=== PATIENT | male | born 1960 | race Caucasian/White ===

== ENCOUNTER 2017-10-10 10:02 | Outpatient (RCR) | payer BC, SELFPAY ==
[2017-10-10 11:04] LABS: Erythrocyte Sedimentation Rate 2 mm/hr (0-20)
[2017-10-10 11:07] LABS: Absolute Lymphocyte Count 1.16 X10^3/ul (0.83-4.51); Absolute Neutrophil Count 2.9 X10^3/uL (2.0-7.7); Basophil# 0.02 X10^3/uL; Basophil% 0.4 % (0-1); Eosinophils% 2.1 % (0-5); Hematocrit 44.8 % (40-54); Hemoglobin 14.7 g/dl (13.0-16.5); Lymphocyte # 1.16 X10^3/ul (4.0); Lymphocyte % 24.2 % (19-41); Mean Corp Hgb Conc 32.8 g/gl (32-36); Mean Corpuscular Hgb 31.7 pg (27.0-32.0); Mean Corpuscular Volume 96.8 fL (80-94); Mean Platelet Vol. 9.7 fl (6.2-12.0); Monocyte# 0.61 X10^3/uL; Monocyte% 12.7 % (0-10); Neutrophil % 60.6 % (47-70); Platelet Count 225 K/mm3 (150-450); RBC Distribution Width CV 12.6 % (11.6-14.6); RBC Distribution Width SD 44.1 fl (35.1-43.9); Red Blood Count 4.63 M/mm3 (4.6-6.2); White Blood Count 4.8 K/mm3 (4.4-11.0)
[2017-10-10 11:08] LABS: POSITIVE COUNT NO; POSITIVE DIFFERENTIAL NO; POSITIVE MORPHOLOGY NO
[2017-10-10 11:43] LABS: AST(SGOT) 42 U/L (15-37); Alanine Aminotransfer ALT/SGPT 56 U/L (16-61); Albumin, Serum 3.5 g/dL (3.2-5.0); BUN 21 mg/dL (7-18); CRP < 2.90 mg/L (0.0-3.0); Cholesterol 143 mg/dL (200); Creatinine, Serum 1.11 mg/dL (0.70-1.30); EST Glomerular Filtration Rate 72 mL/min (>60); Est Glom Filt Rate - Afr Amer 87 mL/min (>60); High Density Lipoprotein 52 mg/dL; PSA,Total - Annual Screen 0.43 ng/mL (0.00-4.00); Triglycerides 88 mg/dL; Very Low Density Lipoprotein 18 mg/dL (5-40)
== END 2017-10-10 11:00 | disposition home or self-care (01) ==
LOC: LAB 10:02
PROVIDERS: Family Provider Family Medicine; PCP Family Medicine; Visit Provider Internal Medicine Rheumatology
DX: M05.79 Rheumatoid arthritis with rheumatoid factor of multiple sites without organ or systems involvement (principal); E78.2 Mixed hyperlipidemia; Z12.5 Encounter for screening for malignant neoplasm of prostate
CPT/HCPCS: 36415; 80061; 82040; 82565; 84153; 84450; 84460; 84520; 85025; 85652; 86140; G0103

== ENCOUNTER 2018-01-30 09:23 | Outpatient (RCR) | payer BC, SELFPAY ==
[2018-01-30 10:57] LABS: Cholesterol 166 mg/dL (200); High Density Lipoprotein 57 mg/dL; PSA,Total- Diagnostic 0.42 ng/mL (0.0-4.0); Triglycerides 116 mg/dL; Very Low Density Lipoprotein 23 mg/dL (5-40)
== END 2018-01-30 11:00 | disposition home or self-care (01) ==
LOC: LAB 09:23
PROVIDERS: Family Provider Family Medicine; PCP Family Medicine; Visit Provider Internal Medicine Rheumatology
DX: E78.2 Mixed hyperlipidemia (principal); Z12.5 Encounter for screening for malignant neoplasm of prostate
CPT/HCPCS: 36415; 80061; 84153

== ENCOUNTER 2018-02-01 08:56 | Outpatient (RCR) | payer BC, SELFPAY ==
[2018-02-01 09:40] LABS: Absolute Lymphocyte Count 1.15 X10^3/ul (0.83-4.51); Absolute Neutrophil Count 1.6 X10^3/uL (2.0-7.7); Basophil# 0.02 X10^3/uL; Basophil% 0.6 % (0-1); Eosinophil# 0.11 X10^3/uL; Eosinophils% 3.3 % (0-5); Hematocrit 45.7 % (40-54); Hemoglobin 15.2 g/dl (13.0-16.5); Lymphocyte # 1.15 X10^3/ul (4.0); Lymphocyte % 34.6 % (19-41); Mean Corp Hgb Conc 33.3 g/gl (32-36); Mean Corpuscular Hgb 31.5 pg (27.0-32.0); Mean Corpuscular Volume 94.8 fL (80-94); Mean Platelet Vol. 9.9 fl (6.2-12.0); Monocyte# 0.49 X10^3/uL; Monocyte% 14.8 % (0-10); Neutrophil # 1.55 X10^3/uL (2.7-7.7); Neutrophil % 46.7 % (47-70); Platelet Count 148 K/mm3 (150-450); RBC Distribution Width CV 13.3 % (11.6-14.6); RBC Distribution Width SD 46.4 fl (35.1-43.9); Red Blood Count 4.82 M/mm3 (4.6-6.2); White Blood Count 3.3 K/mm3 (4.4-11.0)
[2018-02-01 09:41] LABS: POSITIVE COUNT NO; POSITIVE DIFFERENTIAL NO; POSITIVE MORPHOLOGY NO
[2018-02-01 09:42] LABS: Erythrocyte Sedimentation Rate < 1 mm/hr (0-20)
[2018-02-01 10:12] LABS: AST(SGOT) 18 U/L (15-37); Alanine Aminotransfer ALT/SGPT 26 U/L (16-61); Albumin, Serum 3.8 g/dL (3.2-5.0); BUN 22 mg/dL (7-18); CRP < 2.90 mg/L (0.0-3.0); Creatinine, Serum 1.27 mg/dL (0.70-1.30); EST Glomerular Filtration Rate 62 mL/min (>60); Est Glom Filt Rate - Afr Amer 75 mL/min (>60)
== END 2018-02-01 10:00 | disposition home or self-care (01) ==
LOC: LAB 08:56
PROVIDERS: Family Provider Family Medicine; PCP Family Medicine; Visit Provider Internal Medicine Rheumatology
DX: M05.79 Rheumatoid arthritis with rheumatoid factor of multiple sites without organ or systems involvement (principal)
CPT/HCPCS: 36415; 82040; 82565; 84450; 84460; 84520; 85025; 85652; 86140

== ENCOUNTER → 2018-03-02 08:41 | Outpatient (CLI) | payer BC, SELFPAY | PROVIDERS: Family Provider Family Medicine; PCP Family Medicine; Visit Provider Internal Medicine Rheumatology | DX: M06.079 Rheumatoid arthritis without rheumatoid factor, unspecified ankle and foot (principal); M25.572 Pain in left ankle and joints of left foot | CPT/HCPCS: 73721 ==

== ENCOUNTER 2018-05-14 08:35 | Outpatient (RCR) | payer BC, SELFPAY ==
[2018-05-14 10:38] LABS: Absolute Lymphocyte Count 1.21 X10^3/ul (0.83-4.51); Absolute Neutrophil Count 1.6 X10^3/uL (2.0-7.7); Basophil# 0.02 X10^3/uL; Basophil% 0.6 % (0-1); Eosinophil# 0.14 X10^3/uL; Eosinophils% 4.1 % (0-5); Hematocrit 47.5 % (40-54); Hemoglobin 16.1 g/dl (13.0-16.5); Lymphocyte # 1.21 X10^3/ul (4.0); Lymphocyte % 35.1 % (19-41); Mean Corp Hgb Conc 33.9 g/gl (32-36); Mean Corpuscular Hgb 32.7 pg (27.0-32.0); Mean Corpuscular Volume 96.3 fL (80-94); Mean Platelet Vol. 10.6 fl (6.2-12.0); Monocyte# 0.53 X10^3/uL; Monocyte% 15.4 % (0-10); Neutrophil # 1.55 X10^3/uL (2.7-7.7); Neutrophil % 44.8 % (47-70); Platelet Count 154 K/mm3 (150-450); RBC Distribution Width CV 12.5 % (11.6-14.6); RBC Distribution Width SD 42.9 fl (35.1-43.9); Red Blood Count 4.93 M/mm3 (4.6-6.2); White Blood Count 3.5 K/mm3 (4.4-11.0)
[2018-05-14 10:50] LABS: AST(SGOT) 23 U/L (15-37); Alanine Aminotransfer ALT/SGPT 37 U/L (16-61); Albumin, Serum 3.8 g/dL (3.2-5.0); BUN 20 mg/dL (7-18); CRP < 2.90 mg/L (0.0-3.0); Creatinine, Serum 1.14 mg/dL (0.70-1.30); EST Glomerular Filtration Rate 70 mL/min (>60); Est Glom Filt Rate - Afr Amer 85 mL/min (>60)
[2018-05-14 10:53] LABS: POSITIVE COUNT NO; POSITIVE DIFFERENTIAL NO; POSITIVE MORPHOLOGY NO
[2018-05-14 10:54] LABS: Cholesterol 159 mg/dL (200); High Density Lipoprotein 51 mg/dL; T4 Free Direct 0.77 ng/dL (0.76-1.46); Thyroid Stim Hormone (TSH) 2.02 uIU/mL (0.358-3.74); Triglycerides 66 mg/dL; Very Low Density Lipoprotein 13 mg/dL (5-40)
[2018-05-14 11:22] LABS: Erythrocyte Sedimentation Rate 1 mm/hr (0-20)
== END 2018-05-14 10:00 | disposition home or self-care (01) ==
LOC: LAB 08:35
PROVIDERS: Family Provider Family Medicine; PCP Family Medicine; Referring Provider Internal Medicine Rheumatology; Visit Provider Internal Medicine Rheumatology
DX: E78.5 Hyperlipidemia, unspecified (principal); M05.79 Rheumatoid arthritis with rheumatoid factor of multiple sites without organ or systems involvement
CPT/HCPCS: 36415; 80061; 82040; 82565; 84439; 84443; 84450; 84460; 84520; 85025; 85652; 86140

== ENCOUNTER 2018-09-05 11:07 | Outpatient (RCR) | payer BC, SELFPAY ==
[2018-09-05 11:39] LABS: Absolute Neutrophil Count 1.9 X10^3/uL (2.0-7.7); Basophil# 0.02 X10^3/uL; Basophil% 0.5 % (0-1); Eosinophil# 0.13 X10^3/uL; Eosinophils% 3.3 % (0-5); Hematocrit 45.7 % (40-54); Hemoglobin 15.9 g/dl (13.0-16.5); Lymphocyte % 30.8 % (19-41); Mean Corp Hgb Conc 34.8 g/gl (32-36); Mean Corpuscular Hgb 33.7 pg (27.0-32.0); Mean Corpuscular Volume 96.8 fL (80-94); Mean Platelet Vol. 10.1 fl (6.2-12.0); Monocyte# 0.62 X10^3/uL; Monocyte% 15.9 % (0-10); Neutrophil # 1.92 X10^3/uL (2.7-7.7); Neutrophil % 49.5 % (47-70); Platelet Count 144 K/mm3 (150-450); RBC Distribution Width SD 46.1 fl (35.1-43.9); Red Blood Count 4.72 M/mm3 (4.6-6.2); White Blood Count 3.9 K/mm3 (4.4-11.0)
[2018-09-05 11:49] LABS: Erythrocyte Sedimentation Rate 1 mm/hr (0-20)
[2018-09-05 11:50] LABS: POSITIVE COUNT NO; POSITIVE DIFFERENTIAL NO; POSITIVE MORPHOLOGY NO
[2018-09-05 12:18] LABS: AST(SGOT) 22 U/L (15-37); Alanine Aminotransfer ALT/SGPT 39 U/L (16-61); Albumin, Serum 3.8 g/dL (3.2-5.0); BUN 18 mg/dL (7-18); CRP < 2.90 mg/L (0.0-3.0); Creatinine, Serum 1.19 mg/dL (0.70-1.30); EST Glomerular Filtration Rate 66 mL/min (>60); Est Glom Filt Rate - Afr Amer 80 mL/min (>60)
== END 2018-09-20 14:31 | disposition home or self-care (01) ==
LOC: LAB 11:07
PROVIDERS: Family Provider Family Medicine; PCP Family Medicine; Referring Provider Internal Medicine Rheumatology; Visit Provider Internal Medicine Rheumatology
DX: M05.79 Rheumatoid arthritis with rheumatoid factor of multiple sites without organ or systems involvement (principal); Z79.899 Other long term (current) drug therapy
CPT/HCPCS: 36415; 82040; 82565; 84450; 84460; 84520; 85025; 85652; 86140

== ENCOUNTER 2018-12-10 15:37 | Outpatient (RCR) | payer BC, SELFPAY ==
[2018-12-10 17:32] LABS: Absolute Lymphocyte Count 1.24 X10^3/ul (0.83-4.51); Basophil# 0.01 X10^3/uL; Basophil% 0.3 % (0-1); Eosinophil# 0.06 X10^3/uL; Eosinophils% 1.6 % (0-5); Hematocrit 42.9 % (40-54); Hemoglobin 14.7 g/dl (13.0-16.5); Lymphocyte # 1.24 X10^3/ul (4.0); Lymphocyte % 32.2 % (19-41); Mean Corp Hgb Conc 34.3 g/gl (32-36); Mean Corpuscular Hgb 32.5 pg (27.0-32.0); Mean Corpuscular Volume 94.9 fL (80-94); Mean Platelet Vol. 11.2 fl (6.2-12.0); Neutrophil # 2.04 X10^3/uL (2.7-7.7); Neutrophil % 52.9 % (47-70); Platelet Count 169 K/mm3 (150-450); RBC Distribution Width CV 12.4 % (11.6-14.6); RBC Distribution Width SD 41.9 fl (35.1-43.9); Red Blood Count 4.52 M/mm3 (4.6-6.2); White Blood Count 3.9 K/mm3 (4.4-11.0)
[2018-12-10 17:33] LABS: POSITIVE COUNT NO; POSITIVE DIFFERENTIAL NO; POSITIVE MORPHOLOGY NO
[2018-12-10 18:01] LABS: AST(SGOT) 21 U/L (15-37); Alanine Aminotransfer ALT/SGPT 32 U/L (16-61); Albumin, Serum 3.8 g/dL (3.2-5.0); BUN 21 mg/dL (7-18); CRP < 2.90 mg/L (0.0-3.0); EST Glomerular Filtration Rate 73 mL/min (>60); Est Glom Filt Rate - Afr Amer 88 mL/min (>60)
[2018-12-10 18:09] LABS: Erythrocyte Sedimentation Rate < 1 mm/hr (0-20)
== END 2018-12-10 16:37 | disposition home or self-care (01) ==
LOC: LAB 15:37
PROVIDERS: Family Provider Family Medicine; PCP Family Medicine; Referring Provider Internal Medicine Rheumatology; Visit Provider Internal Medicine Rheumatology
DX: M06.079 Rheumatoid arthritis without rheumatoid factor, unspecified ankle and foot (principal); Z79.899 Other long term (current) drug therapy
CPT/HCPCS: 36415; 82040; 82565; 84450; 84460; 84520; 85025; 85652; 86140

== ENCOUNTER 2019-03-12 09:54 | Outpatient (RCR) | payer BC, SELFPAY ==
[2019-03-12 10:28] LABS: Erythrocyte Sedimentation Rate < 1 mm/hr (0-20)
[2019-03-12 10:29] LABS: Absolute Lymphocyte Count 0.97 X10^3/uL (0.83-4.51); Absolute Neutrophil Count 1.6 X10^3/uL (2.0-7.7); Basophil# 0.03 X10^3/uL; Basophil% 0.9 % (0-1); Eosinophil# 0.13 X10^3/uL; Hemoglobin 15.6 g/dL (13.0-16.5); Lymphocyte # 0.97 X10^3/ul (4.0); Lymphocyte % 29.8 % (19-41); Mean Corp Hgb Conc 34.7 g/dL (32-36); Mean Corpuscular Hgb 33.5 pg (27.0-32.0); Mean Corpuscular Volume 96.6 fL (80-94); Mean Platelet Vol. 10.2 fl (6.2-12.0); Monocyte% 15.4 % (0-10); NRBC Flagged by Analyzer 0 % (0-5); Neutrophil # 1.61 X10^3/uL (2.7-7.7); Neutrophil % 49.6 % (47-70); Platelet Count 159 K/mm3 (150-450); RBC Distribution Width CV 12.2 % (11.6-14.6); RBC Distribution Width SD 43.7 fl (35.1-43.9); Red Blood Count 4.66 M/mm3 (4.6-6.2); White Blood Count 3.3 K/mm3 (4.4-11.0)
[2019-03-12 11:04] LABS: AST(SGOT) 22 U/L (15-37); Alanine Aminotransfer ALT/SGPT 32 U/L (16-61); Albumin, Serum 3.6 g/dL (3.2-5.0); BUN 17 mg/dL (7-18); CRP < 2.90 mg/L (0.0-3.0); Creatinine, Serum 1.13 mg/dL (0.70-1.30); EST Glomerular Filtration Rate 70 mL/min (>60); Est Glom Filt Rate - Afr Amer 85 mL/min (>60)
== END 2019-03-12 11:00 | disposition home or self-care (01) ==
LOC: LAB 09:54
PROVIDERS: Family Provider Family Medicine; PCP Family Medicine; Referring Provider Internal Medicine Rheumatology; Visit Provider Internal Medicine Rheumatology
DX: M06.079 Rheumatoid arthritis without rheumatoid factor, unspecified ankle and foot (principal); Z79.899 Other long term (current) drug therapy
CPT/HCPCS: 36415; 82040; 82565; 84450; 84460; 84520; 85025; 85652; 86140

== ENCOUNTER 2019-06-17 09:19 | Outpatient (RCR) | payer BC, SELFPAY ==
[2019-06-17 10:35] LABS: Absolute Lymphocyte Count 0.91 X10^3/uL (0.83-4.51); Absolute Neutrophil Count 1.8 X10^3/uL (2.0-7.7); Basophil# 0.03 X10^3/uL; Basophil% 0.9 % (0-1); Eosinophil# 0.09 X10^3/uL; Eosinophils% 2.7 % (0-5); Hematocrit 46.7 % (40-54); Hemoglobin 15.9 g/dL (13.0-16.5); Lymphocyte # 0.91 X10^3/ul (4.0); Lymphocyte % 27.2 % (19-41); Mean Corpuscular Volume 96.9 fL (80-94); Mean Platelet Vol. 10.4 fl (6.2-12.0); Monocyte# 0.49 X10^3/uL; Monocyte% 14.7 % (0-10); NRBC Flagged by Analyzer 0 % (0-5); Neutrophil # 1.82 X10^3/uL (2.7-7.7); Neutrophil % 54.5 % (47-70); Platelet Count 172 K/mm3 (150-450); RBC Distribution Width CV 12.5 % (11.6-14.6); RBC Distribution Width SD 44.4 fl (35.1-43.9); Red Blood Count 4.82 M/mm3 (4.6-6.2); White Blood Count 3.3 K/mm3 (4.4-11.0)
[2019-06-17 10:38] LABS: Erythrocyte Sedimentation Rate 2 mm/hr (0-20)
[2019-06-17 11:22] LABS: AST(SGOT) 20 U/L (15-37); Alanine Aminotransfer ALT/SGPT 36 U/L (16-61); Albumin, Serum 3.8 g/dL (3.2-5.0); BUN 20 mg/dL (7-18); CRP < 2.90 mg/L (0.0-3.0); Creatinine, Serum 1.19 mg/dL (0.70-1.30); EST Glomerular Filtration Rate 66 mL/min (>60); Est Glom Filt Rate - Afr Amer 80 mL/min (>60)
== END 2019-06-17 18:00 | disposition home or self-care (01) ==
LOC: LAB 09:19
PROVIDERS: Family Provider Family Medicine; PCP Family Medicine; Referring Provider Internal Medicine Rheumatology; Visit Provider Internal Medicine Rheumatology
DX: M06.079 Rheumatoid arthritis without rheumatoid factor, unspecified ankle and foot (principal); Z79.899 Other long term (current) drug therapy
CPT/HCPCS: 36415; 82040; 82565; 84450; 84460; 84520; 85025; 85652; 86140

== ENCOUNTER 2019-09-16 15:45 | Outpatient (RCR) | payer BC, SELFPAY ==
[2019-09-16 16:39] LABS: Absolute Lymphocyte Count 1.19 X10^3/uL (0.83-4.51); Basophil# 0.04 X10^3/uL; Basophil% 0.8 % (0-1); Hematocrit 47.4 % (40-54); Hemoglobin 15.8 g/dL (13.0-16.5); Lymphocyte # 1.19 X10^3/ul (4.0); Lymphocyte % 23.7 % (19-41); Mean Corp Hgb Conc 33.3 g/dL (32-36); Mean Corpuscular Hgb 32.8 pg (27.0-32.0); Mean Corpuscular Volume 98.3 fL (80-94); Mean Platelet Vol. 10.2 fl (6.2-12.0); Monocyte# 0.65 X10^3/uL; Monocyte% 12.9 % (0-10); NRBC Flagged by Analyzer 0 % (0-5); Neutrophil # 3.01 X10^3/uL (2.7-7.7); Platelet Count 174 K/mm3 (150-450); RBC Distribution Width CV 12.7 % (11.6-14.6); RBC Distribution Width SD 45.6 fl (35.1-43.9); Red Blood Count 4.82 M/mm3 (4.6-6.2)
[2019-09-16 16:49] LABS: Erythrocyte Sedimentation Rate 1 mm/hr (0-20)
[2019-09-16 17:14] LABS: AST(SGOT) 20 U/L (15-37); Alanine Aminotransfer ALT/SGPT 35 U/L (16-61); Albumin, Serum 3.9 g/dL (3.2-5.0); BUN 19 mg/dL (7-18); CRP < 2.90 mg/L (0.0-3.0); Creatinine, Serum 1.18 mg/dL (0.70-1.30); EST Glomerular Filtration Rate 67 mL/min (>60); Est Glom Filt Rate - Afr Amer 81 mL/min (>60)
== END 2019-09-16 18:00 | disposition home or self-care (01) ==
LOC: LAB 15:45
PROVIDERS: Family Provider Family Medicine; PCP Family Medicine; Referring Provider Internal Medicine Rheumatology; Visit Provider Internal Medicine Rheumatology
DX: M06.079 Rheumatoid arthritis without rheumatoid factor, unspecified ankle and foot (principal); Z79.899 Other long term (current) drug therapy
CPT/HCPCS: 36415; 82040; 82565; 84450; 84460; 84520; 85025; 85652; 86140

== ENCOUNTER → 2019-11-26 16:13 | Outpatient (CLI) | payer BC, SELFPAY ==
[2019-11-26 16:53] LABS: Absolute Lymphocyte Count 0.99 X10^3/uL (0.83-4.51); Absolute Neutrophil Count 2.4 X10^3/uL (2.0-7.7); Basophil# 0.02 X10^3/uL; Basophil% 0.5 % (0-1); Eosinophil# 0.17 X10^3/uL; Eosinophils% 4.1 % (0-5); Hematocrit 45.7 % (40-54); Hemoglobin 15.3 g/dL (13.0-16.5); Lymphocyte # 0.99 X10^3/ul (4.0); Lymphocyte % 23.7 % (19-41); Mean Corp Hgb Conc 33.5 g/dL (32-36); Mean Corpuscular Hgb 32.1 pg (27.0-32.0); Mean Corpuscular Volume 95.8 fL (80-94); Mean Platelet Vol. 9.5 fl (6.2-12.0); Monocyte# 0.55 X10^3/uL; Monocyte% 13.2 % (0-10); NRBC Flagged by Analyzer 0 % (0-5); Neutrophil # 2.43 X10^3/uL (2.7-7.7); Neutrophil % 58.3 % (47-70); Platelet Count 157 K/mm3 (150-450); RBC Distribution Width CV 12.5 % (11.6-14.6); RBC Distribution Width SD 44.3 fl (35.1-43.9); Red Blood Count 4.77 M/mm3 (4.6-6.2); White Blood Count 4.2 K/mm3 (4.4-11.0)
[2019-11-26 17:26] LABS: AST(SGOT) 26 U/L (15-37); Alanine Aminotransfer ALT/SGPT 36 U/L (16-61); Albumin, Serum 3.7 g/dL (3.2-5.0); BUN 24 mg/dL (7-18); CRP < 2.90 mg/L (0.0-3.0); Creatinine, Serum 1.43 mg/dL (0.70-1.30); EST Glomerular Filtration Rate 54 mL/min (>60); Est Glom Filt Rate - Afr Amer 65 mL/min (>60); Uric Acid 7.3 mg/dL (3.5-7.2)
[2019-11-26 18:07] LABS: Erythrocyte Sedimentation Rate < 1 mm/hr (0-20)
[2019-11-27 08:28] LABS: Hepatitis B Surface Antibody Non-Reactive; Hepatitis B Surface Antigen Non-Reactive (Nonreactive); Hepatitis C Antibody Non-Reactive (Nonreactive)
[2019-11-30 03:06] LABS: QNTFERON TB Mitogen Value > 10.00 IU/mL (.); QNTFERON TB Nil Value 0.01 IU/mL (.); QNTFERON TB1+ Ag Value 0.03 IU/mL (.); QNTFERON TB2+ Ag Value 0.01 IU/mL (.)
[2019-11-30 03:22] LABS: CCP IgG Antibodies 90 units (0-19); Hepatitis B Core Ab Total Negative (Negative); QNTIFERON TB Positive Criteria Negative (Negative)
== END ==
PROVIDERS: PCP Family Medicine; Visit Provider Internal Medicine Rheumatology
DX: M06.079 Rheumatoid arthritis without rheumatoid factor, unspecified ankle and foot (principal); Z79.899 Other long term (current) drug therapy
CPT/HCPCS: 36415; 82040; 82565; 84450; 84460; 84520; 84550; 85025; 85652; 86038; 86140; 86200; 86431; 86480; 86704; 86706; 86803; 87340

== ENCOUNTER 2020-02-27 08:24 | Outpatient (RCR) | payer BC, SELFPAY ==
[2020-02-27 09:29] LABS: Erythrocyte Sedimentation Rate 4 mm/hr (0-20)
[2020-02-27 09:31] LABS: Absolute Lymphocyte Count 0.86 X10^3/uL (0.83-4.51); Absolute Neutrophil Count 1.8 X10^3/uL (2.0-7.7); Basophil# 0.04 X10^3/uL; Basophil% 1.1 % (0-1); Eosinophil# 0.17 X10^3/uL; Eosinophils% 4.6 % (0-5); Hematocrit 44.6 % (40-54); Hemoglobin 15.1 g/dL (13.0-16.5); Lymphocyte # 0.86 X10^3/ul (4.0); Lymphocyte % 23.5 % (19-41); Mean Corp Hgb Conc 33.9 g/dL (32-36); Mean Corpuscular Hgb 33.3 pg (27.0-32.0); Mean Corpuscular Volume 98.2 fL (80-94); Mean Platelet Vol. 10.3 fl (6.2-12.0); Monocyte# 0.74 X10^3/uL; Monocyte% 20.2 % (0-10); NRBC Flagged by Analyzer 0 % (0-5); Neutrophil # 1.84 X10^3/uL (2.7-7.7); Neutrophil % 50.3 % (47-70); Platelet Count 189 K/mm3 (150-450); RBC Distribution Width CV 12.1 % (11.6-14.6); Red Blood Count 4.54 M/mm3 (4.6-6.2); White Blood Count 3.7 K/mm3 (4.4-11.0)
[2020-02-27 09:51] LABS: AST(SGOT) 26 U/L (15-37); Alanine Aminotransfer ALT/SGPT 37 U/L (16-61); Albumin, Serum 3.6 g/dL (3.2-5.0); BUN 28 mg/dL (7-18); CRP < 2.90 mg/L (0.0-3.0); EST Glomerular Filtration Rate 71 mL/min (>60)
== END 2020-02-27 18:00 | disposition home or self-care (01) ==
LOC: LAB 08:24
PROVIDERS: Family Provider Family Medicine; PCP Family Medicine; Referring Provider Internal Medicine Rheumatology; Visit Provider Internal Medicine Rheumatology
DX: M06.079 Rheumatoid arthritis without rheumatoid factor, unspecified ankle and foot (principal); Z79.899 Other long term (current) drug therapy
CPT/HCPCS: 36415; 82040; 84450; 84460; 84520; 85025; 85652; 86140

== ENCOUNTER 2020-06-01 14:52 | Outpatient (RCR) | payer BC, SELFPAY ==
[2020-06-01 15:36] LABS: Absolute Lymphocyte Count 0.98 X10^3/uL (0.83-4.51); Absolute Neutrophil Count 2.9 X10^3/uL (2.0-7.7); Basophil# 0.03 X10^3/uL; Basophil% 0.7 % (0-1); Eosinophil# 0.02 X10^3/uL; Eosinophils% 0.4 % (0-5); Hematocrit 44.5 % (40-54); Hemoglobin 14.8 g/dL (13.0-16.5); Lymphocyte # 0.98 X10^3/ul (4.0); Lymphocyte % 21.9 % (19-41); Mean Corp Hgb Conc 33.3 g/dL (32-36); Mean Corpuscular Hgb 32.7 pg (27.0-32.0); Mean Corpuscular Volume 98.5 fL (80-94); Mean Platelet Vol. 10.2 fl (6.2-12.0); Monocyte# 0.55 X10^3/uL; Monocyte% 12.3 % (0-10); NRBC Flagged by Analyzer 0 % (0-5); Neutrophil # 2.88 X10^3/uL (2.7-7.7); Neutrophil % 64.5 % (47-70); Platelet Count 170 K/mm3 (150-450); RBC Distribution Width CV 12.9 % (11.6-14.6); RBC Distribution Width SD 45.8 fl (35.1-43.9); Red Blood Count 4.52 M/mm3 (4.6-6.2); White Blood Count 4.5 K/mm3 (4.4-11.0)
[2020-06-01 15:59] LABS: Erythrocyte Sedimentation Rate 2 mm/hr (0-20)
[2020-06-01 16:07] LABS: AST(SGOT) 21 U/L (15-37); Alanine Aminotransfer ALT/SGPT 34 U/L (16-61); Albumin, Serum 3.8 g/dL (3.2-5.0); BUN 15 mg/dL (7-18); CRP < 2.90 mg/L (0.0-3.0); Creatinine, Serum 1.16 mg/dL (0.70-1.30); EST Glomerular Filtration Rate 68 mL/min (>60); Est Glom Filt Rate - Afr Amer 82 mL/min (>60)
== END 2020-06-01 18:00 | disposition home or self-care (01) ==
LOC: LAB 14:52
PROVIDERS: Family Provider Family Medicine; PCP Family Medicine; Referring Provider Internal Medicine Rheumatology; Visit Provider Internal Medicine Rheumatology
DX: M06.079 Rheumatoid arthritis without rheumatoid factor, unspecified ankle and foot (principal); Z79.899 Other long term (current) drug therapy
CPT/HCPCS: 36415; 82040; 82565; 84450; 84460; 84520; 85025; 85652; 86140

== ENCOUNTER → 2020-07-08 15:48 | Outpatient (CLI) | payer BC, SELFPAY ==
[2020-07-08 18:01] LABS: ALB/GLOB Ratio 1.3 RATIO (0.9-2.4); AST(SGOT) 18 U/L (15-37); Alanine Aminotransfer ALT/SGPT 42 U/L (16-61); Albumin, Serum 4.1 g/dL (3.2-5.0); Alkaline Phosphatase 64 U/L (45-117); Anion Gap 5 (5-15); BUN 19 mg/dL (7-18); BUN/Creat Ratio 15.7 RATIO (10-20); Calcium,Total 9.1 mg/dL (8.5-10.1); Chloride 103 mmol/L (98-107); Cholesterol 192 mg/dL (200); Creatinine, Serum 1.21 mg/dL (0.70-1.30); EST Glomerular Filtration Rate 65 mL/min (>60); Est Glom Filt Rate - Afr Amer 78 mL/min (>60); Globulin 3.1 g/dL (2.2-4.2); Glucose 103 mg/dL (74-106); High Density Lipoprotein 68 mg/dL; Potassium 4.3 mmol/L (3.5-5.1); Protein, Total 7.2 g/dL (6.4-8.2); Sodium Level 139 mmol/L (136-145); Thyroid Stim Hormone (TSH) 1.59 uIU/mL (0.358-3.74); Triglycerides 117 mg/dL; Very Low Density Lipoprotein 23 mg/dL (5-40)
== END ==
PROVIDERS: PCP Family Medicine; Visit Provider Family Medicine
DX: E78.5 Hyperlipidemia, unspecified (principal); M06.9 Rheumatoid arthritis, unspecified; Z12.5 Encounter for screening for malignant neoplasm of prostate
CPT/HCPCS: 36415; 80053; 80061; 84153; 84443; G0103

== ENCOUNTER 2020-09-29 08:32 | Outpatient (RCR) | payer BC, SELFPAY ==
[2020-09-29 09:41] LABS: Absolute Neutrophil Count 1.6 X10^3/uL (2.0-7.7); Basophil# 0.03 X10^3/uL; Eosinophils% 3.2 % (0-5); Hematocrit 47.8 % (40-54); Hemoglobin 16.3 g/dL (13.0-16.5); Lymphocyte % 32.5 % (19-41); Mean Corp Hgb Conc 34.1 g/dL (32-36); Mean Corpuscular Hgb 34.4 pg (27.0-32.0); Mean Corpuscular Volume 100.8 fL (80-94); NRBC Flagged by Analyzer 0 % (0-5); Neutrophil # 1.55 X10^3/uL (2.7-7.7); Neutrophil % 50.3 % (47-70); Platelet Count 154 K/mm3 (150-450); RBC Distribution Width CV 12.5 % (11.6-14.6); RBC Distribution Width SD 47.7 fl (35.1-43.9); Red Blood Count 4.74 M/mm3 (4.6-6.2); White Blood Count 3.1 K/mm3 (4.4-11.0)
[2020-09-29 09:59] LABS: Erythrocyte Sedimentation Rate 1 mm/hr (0-20)
[2020-09-29 10:00] LABS: AST(SGOT) 21 U/L (15-37); Alanine Aminotransfer ALT/SGPT 37 U/L (16-61); Albumin, Serum 3.7 g/dL (3.2-5.0); BUN 22 mg/dL (7-18); CRP < 2.90 mg/L (0.0-3.0); Creatinine, Serum 1.26 mg/dL (0.70-1.30); EST Glomerular Filtration Rate 62 mL/min (>60); Est Glom Filt Rate - Afr Amer 75 mL/min (>60)
== END 2020-09-29 18:00 | disposition home or self-care (01) ==
LOC: LAB 08:32
PROVIDERS: Family Provider Family Medicine; PCP Family Medicine; Referring Provider Internal Medicine Rheumatology; Visit Provider Internal Medicine Rheumatology
DX: M06.079 Rheumatoid arthritis without rheumatoid factor, unspecified ankle and foot (principal); Z79.899 Other long term (current) drug therapy
CPT/HCPCS: 36415; 82040; 82565; 84450; 84460; 84520; 85025; 85652; 86140

== ENCOUNTER 2021-02-01 13:30 | Outpatient (RCR) | payer BC, SELFPAY ==
[2021-02-01 14:05] LABS: Absolute Neutrophil Count 4.7 X10^3/uL (2.0-7.7); Basophil# 0.04 X10^3/uL; Basophil% 0.7 % (0-1); Eosinophil# 0.04 X10^3/uL; Eosinophils% 0.7 % (0-5); Hematocrit 47.2 % (40-54); Hemoglobin 15.7 g/dL (13.0-16.5); Lymphocyte % 8.2 % (19-41); Mean Corp Hgb Conc 33.3 g/dL (32-36); Mean Corpuscular Hgb 32.8 pg (27.0-32.0); Mean Corpuscular Volume 98.5 fL (80-94); Mean Platelet Vol. 9.9 fl (6.2-12.0); Monocyte# 0.82 X10^3/uL; Monocyte% 13.5 % (0-10); NRBC Flagged by Analyzer 0 % (0-5); Neutrophil # 4.66 X10^3/uL (2.7-7.7); Neutrophil % 76.6 % (47-70); POSITIVE DIFFERENTIAL YES; Platelet Count 156 K/mm3 (150-450); RBC Distribution Width CV 12.5 % (11.6-14.6); RBC Distribution Width SD 45.7 fl (35.1-43.9); Red Blood Count 4.79 M/mm3 (4.6-6.2); White Blood Count 6.1 K/mm3 (4.4-11.0)
[2021-02-01 14:09] LABS: Differential Indicated SCAN CRITERIA MET
[2021-02-01 14:19] LABS: Erythrocyte Sedimentation Rate 3 mm/hr (0-20)
[2021-02-01 14:37] LABS: Platelet Estimate ADEQUATE (ADEQ); Red Cell Morphology NORM C+C NORMAL (NORM C&C)
[2021-02-01 14:43] LABS: AST(SGOT) 24 U/L (15-37); Alanine Aminotransfer ALT/SGPT 33 U/L (16-61); BUN 17 mg/dL (7-18); CRP < 2.90 mg/L (0.0-3.0); Creatinine, Serum 1.77 mg/dL (0.70-1.30); EST Glomerular Filtration Rate 42 mL/min (>60); Est Glom Filt Rate - Afr Amer 50 mL/min (>60)
== END 2021-02-01 18:00 | disposition home or self-care (01) ==
LOC: LAB 13:30
PROVIDERS: Family Provider Family Medicine; PCP Family Medicine; Referring Provider Internal Medicine Rheumatology; Visit Provider Internal Medicine Rheumatology
DX: M06.079 Rheumatoid arthritis without rheumatoid factor, unspecified ankle and foot (principal); Z79.899 Other long term (current) drug therapy
CPT/HCPCS: 36415; 82040; 82565; 84450; 84460; 84520; 85025; 85652; 86140

== ENCOUNTER → 2021-04-17 07:55 | Outpatient (CLI) | payer BC, SELFPAY ==
[2021-04-17 08:53] LABS: Absolute Lymphocyte Count 0.89 X10^3/uL (0.83-4.51); Absolute Neutrophil Count 1.7 X10^3/uL (2.0-7.7); Basophil# 0.04 X10^3/uL; Basophil% 1.2 % (0-1); Hematocrit 46.2 % (40-54); Hemoglobin 15.5 g/dL (13.0-16.5); Lymphocyte # 0.89 X10^3/ul (0.83-4.51); Lymphocyte % 27.1 % (19-41); Mean Corp Hgb Conc 33.5 g/dL (32-36); Mean Corpuscular Hgb 33.3 pg (27.0-32.0); Mean Corpuscular Volume 99.1 fL (80-94); Monocyte% 18.2 % (0-10); NRBC Flagged by Analyzer 0 % (0-5); Neutrophil # 1.65 X10^3/uL (2.7-7.7); Neutrophil % 50.2 % (47-70); Platelet Count 174 K/mm3 (150-450); RBC Distribution Width CV 12.9 % (11.6-14.6); RBC Distribution Width SD 46.9 fl (35.1-43.9); Red Blood Count 4.66 M/mm3 (4.6-6.2)
[2021-04-17 08:55] LABS: Erythrocyte Sedimentation Rate < 1 mm/hr (0-20); White Blood Count 3.3 K/mm3 (4.4-11.0)
[2021-04-17 09:21] LABS: AST(SGOT) 23 U/L (15-37); Alanine Aminotransfer ALT/SGPT 36 U/L (16-61); Albumin, Serum 3.6 g/dL (3.2-5.0); BUN 20 mg/dL (7-18); CRP < 2.90 mg/L (0.0-3.0); Creatinine, Serum 1.06 mg/dL (0.70-1.30); EST Glomerular Filtration Rate 75 mL/min (>60); Est Glom Filt Rate - Afr Amer 91 mL/min (>60)
[2021-04-18 10:33] LABS: Hepatitis B Core Ab Total Negative (Negative)
== END ==
PROVIDERS: PCP Family Medicine; Referring Provider Internal Medicine Rheumatology; Visit Provider Internal Medicine Rheumatology
DX: Z79.899 Other long term (current) drug therapy (principal)
CPT/HCPCS: 36415; 82040; 82565; 84450; 84460; 84520; 85025; 85652; 86140; 86704

== ENCOUNTER 2021-07-09 10:03 | Outpatient (RCR) | payer BC, SELFPAY ==
[2021-07-09 10:30] LABS: Erythrocyte Sedimentation Rate < 1 mm/hr (0-20)
[2021-07-09 10:31] LABS: Absolute Lymphocyte Count 0.97 X10^3/uL (0.83-4.51); Absolute Neutrophil Count 1.9 X10^3/uL (2.0-7.7); Basophil# 0.03 X10^3/uL; Basophil% 0.8 % (0-1); Eosinophils% 2.7 % (0-5); Hematocrit 46.2 % (40-54); Hemoglobin 15.4 g/dL (13.0-16.5); Lymphocyte # 0.97 X10^3/ul (0.83-4.51); Lymphocyte % 26.2 % (19-41); Mean Corp Hgb Conc 33.3 g/dL (32-36); Mean Corpuscular Hgb 33.1 pg (27.0-32.0); Mean Corpuscular Volume 99.4 fL (80-94); Mean Platelet Vol. 9.4 fl (6.2-12.0); Monocyte# 0.73 X10^3/uL; Monocyte% 19.7 % (0-10); NRBC Flagged by Analyzer 0 % (0-5); Neutrophil # 1.86 X10^3/uL (2.7-7.7); Neutrophil % 50.3 % (47-70); Platelet Count 165 K/mm3 (150-450); RBC Distribution Width CV 12.7 % (11.6-14.6); RBC Distribution Width SD 46.5 fl (35.1-43.9); Red Blood Count 4.65 M/mm3 (4.6-6.2); White Blood Count 3.7 K/mm3 (4.4-11.0)
[2021-07-09 10:59] LABS: AST(SGOT) 21 U/L (15-37); Alanine Aminotransfer ALT/SGPT 41 U/L (16-61); Albumin, Serum 3.6 g/dL (3.2-5.0); BUN 20 mg/dL (7-18); CRP < 2.90 mg/L (0.0-3.0); Cholesterol 167 mg/dL (200); Creatinine, Serum 1.12 mg/dL (0.70-1.30); EST Glomerular Filtration Rate 71 mL/min (>60); Est Glom Filt Rate - Afr Amer 85 mL/min (>60); High Density Lipoprotein 71 mg/dL; PSA,Total - Annual Screen 0.37 ng/mL (0.00-4.00); Triglycerides 68 mg/dL; Very Low Density Lipoprotein 14 mg/dL (5-40)
== END 2021-07-24 18:00 | disposition home or self-care (01) ==
LOC: LAB 10:03
PROVIDERS: Family Provider Family Medicine; PCP Family Medicine; Referring Provider Family Medicine; Visit Provider Internal Medicine Rheumatology
DX: M06.079 Rheumatoid arthritis without rheumatoid factor, unspecified ankle and foot (principal); E78.5 Hyperlipidemia, unspecified; Z12.5 Encounter for screening for malignant neoplasm of prostate
CPT/HCPCS: 36415; 80061; 82040; 82565; 84153; 84450; 84460; 84520; 85025; 85652; 86140; G0103

== ENCOUNTER 2021-10-08 09:33 | Outpatient (RCR) | payer BC, SELFPAY ==
[2021-10-08 10:49] LABS: Absolute Lymphocyte Count 0.88 X10^3/uL (0.83-4.51); Absolute Neutrophil Count 1.7 X10^3/uL (2.0-7.7); Basophil# 0.03 X10^3/uL; Basophil% 0.9 % (0-1); Eosinophil# 0.07 X10^3/uL; Eosinophils% 2.1 % (0-5); Erythrocyte Sedimentation Rate 1 mm/hr (0-20); Hematocrit 46.3 % (40-54); Hemoglobin 16.2 g/dL (13.0-16.5); Lymphocyte # 0.88 X10^3/ul (0.83-4.51); Lymphocyte % 26.3 % (19-41); Mean Corpuscular Hgb 34.6 pg (27.0-32.0); Mean Corpuscular Volume 98.9 fL (80-94); Mean Platelet Vol. 10.1 fl (6.2-12.0); Monocyte# 0.69 X10^3/uL; Monocyte% 20.7 % (0-10); NRBC Flagged by Analyzer 0 % (0-5); Neutrophil # 1.67 X10^3/uL (2.7-7.7); Platelet Count 151 K/mm3 (150-450); RBC Distribution Width CV 12.6 % (11.6-14.6); Red Blood Count 4.68 M/mm3 (4.6-6.2); White Blood Count 3.3 K/mm3 (4.4-11.0)
[2021-10-08 11:15] LABS: AST(SGOT) 22 U/L (15-37); Alanine Aminotransfer ALT/SGPT 37 U/L (16-61); Albumin, Serum 3.9 g/dL (3.2-5.0); BUN 19 mg/dL (7-18); CRP < 2.90 mg/L (0.0-3.0); Creatinine, Serum 1.08 mg/dL (0.70-1.30); EST Glomerular Filtration Rate 74 mL/min (>60); Est Glom Filt Rate - Afr Amer 89 mL/min (>60)
== END 2021-10-21 18:00 | disposition home or self-care (01) ==
LOC: LAB 09:33
PROVIDERS: Family Provider Family Medicine; PCP Family Medicine; Referring Provider Family Medicine; Visit Provider Internal Medicine Rheumatology
DX: M06.079 Rheumatoid arthritis without rheumatoid factor, unspecified ankle and foot (principal)
CPT/HCPCS: 36415; 82040; 82565; 84450; 84460; 84520; 85025; 85652; 86140

== ENCOUNTER 2022-01-03 12:34 | Outpatient (RCR) | payer BC, SELFPAY ==
[2022-01-03 13:45] LABS: Erythrocyte Sedimentation Rate 1 mm/hr (0-20)
[2022-01-03 13:57] LABS: AST(SGOT) 24 U/L (15-37); Alanine Aminotransfer ALT/SGPT 35 U/L (16-61); Albumin, Serum 3.8 g/dL (3.2-5.0); BUN 16 mg/dL (7-18); CRP < 2.90 mg/L (0.0-3.0); EST Glomerular Filtration Rate 72 mL/min (>60); Est Glom Filt Rate - Afr Amer 87 mL/min (>60)
[2022-01-03 14:09] LABS: Absolute Neutrophil Count 3.1 X10^3/uL (2.0-7.7); Basophil# 0.02 X10^3/uL; Basophil% 0.4 % (0-1); Eosinophil# 0.05 X10^3/uL; Eosinophils% 1.1 % (0-5); Hematocrit 43.6 % (40-54); Hemoglobin 14.6 g/dL (13.0-16.5); Lymphocyte % 15.5 % (19-41); Mean Corp Hgb Conc 33.5 g/dL (32-36); Mean Corpuscular Hgb 33.3 pg (27.0-32.0); Mean Corpuscular Volume 99.5 fL (80-94); Mean Platelet Vol. 10.5 fl (6.2-12.0); Monocyte# 0.61 X10^3/uL; Monocyte% 13.5 % (0-10); NRBC Flagged by Analyzer 0 % (0-5); Neutrophil # 3.12 X10^3/uL (2.7-7.7); Neutrophil % 69.1 % (47-70); Platelet Count 158 K/mm3 (150-450); RBC Distribution Width CV 12.4 % (11.6-14.6); RBC Distribution Width SD 45.7 fl (35.1-43.9); Red Blood Count 4.38 M/mm3 (4.6-6.2); White Blood Count 4.5 K/mm3 (4.4-11.0)
== END 2022-01-03 23:59 | disposition home or self-care (01) ==
LOC: LAB 12:34
PROVIDERS: Family Provider Family Medicine; PCP Family Medicine; Referring Provider Family Medicine; Visit Provider Internal Medicine Rheumatology
DX: M06.079 Rheumatoid arthritis without rheumatoid factor, unspecified ankle and foot (principal)
CPT/HCPCS: 36415; 82040; 82565; 84450; 84460; 84520; 85025; 85652; 86140

== ENCOUNTER 2022-03-25 13:42 | Outpatient (RCR) | payer BC, SELFPAY ==
[2022-03-25 14:36] LABS: Erythrocyte Sedimentation Rate < 1 mm/hr (0-20)
[2022-03-25 15:07] LABS: AST(SGOT) 22 U/L (15-37); Alanine Aminotransfer ALT/SGPT 37 U/L (16-61); Albumin, Serum 3.9 g/dL (3.2-5.0); BUN 20 mg/dL (7-18); CRP < 2.90 mg/L (0.0-3.0)
[2022-03-25 16:21] LABS: Absolute Lymphocyte Count 0.75 X10^3/uL (0.83-4.51); Absolute Neutrophil Count 2.1 X10^3/uL (2.0-7.7); Basophil# 0.03 X10^3/uL; Basophil% 0.8 % (0-1); Eosinophil# 0.06 X10^3/uL; Eosinophils% 1.7 % (0-5); Hematocrit 44.1 % (40-54); Hemoglobin 14.9 g/dL (13.0-16.5); Lymphocyte # 0.75 X10^3/ul (0.83-4.51); Lymphocyte % 20.9 % (19-41); Mean Corp Hgb Conc 33.8 g/dL (32-36); Mean Corpuscular Hgb 33.2 pg (27.0-32.0); Mean Corpuscular Volume 98.2 fL (80-94); Mean Platelet Vol. 10.4 fl (6.2-12.0); Monocyte# 0.68 X10^3/uL; Monocyte% 18.9 % (0-10); NRBC Flagged by Analyzer 0 % (0-5); Neutrophil # 2.05 X10^3/uL (2.7-7.7); Neutrophil % 57.1 % (47-70); Platelet Count 174 K/mm3 (150-450); RBC Distribution Width CV 12.6 % (11.6-14.6); RBC Distribution Width SD 45.1 fl (35.1-43.9); Red Blood Count 4.49 M/mm3 (4.6-6.2); White Blood Count 3.6 K/mm3 (4.4-11.0)
[2022-03-26 09:44] LABS: Creatinine, Serum 1.36 mg/dL (0.70-1.30); EST Glomerular Filtration Rate 56 mL/min (>60); Est Glom Filt Rate - Afr Amer 68 mL/min (>60)
== END 2022-03-25 18:00 | disposition home or self-care (01) ==
LOC: LAB 13:42
PROVIDERS: Family Provider Family Medicine; PCP Family Medicine; Referring Provider Family Medicine; Visit Provider Internal Medicine Rheumatology
DX: M06.079 Rheumatoid arthritis without rheumatoid factor, unspecified ankle and foot (principal)
CPT/HCPCS: 36415; 82040; 82565; 84450; 84460; 84520; 85025; 85652; 86140

== ENCOUNTER → 2022-04-14 | Outpatient (CLI) | payer BC, SELFPAY ==
--- NOTE | 2022-04-14 08:40 | RAD_ITS ---
STUDY: X-RAY - LEFT HAND REASON FOR EXAM: Male, 62 years old. RHEUMATOID ARTHRITIS TECHNIQUE: 3 view(s) of the hand. COMPARISON: 2012 FINDINGS: Progression of severe radio scaphoid and ulnar/lunate arthrosis with persistent and slightly worsened subchondral erosions in the distal radius and ulna. There is stable positive ulnar variance. Stable intercarpal arthrosis particularly between the scaphoid and lunate and between the scaphoid and trapezoid. Stable carpometacarpal, metacarpophalangeal, and intraphalangeal arthrosis. No demonstrated fracture, mild nonspecific soft tissue swelling RAD/Hand Min 3 Views IMPRESSION: Progression/worsening of arthritic changes between the radius and scaphoid and between the ulna and lunate with worsening erosive changes and subchondral cyst formation. Progression/worsening of intercarpal arthrosis Stable carpometacarpal, metacarpophalangeal, and interphalangeal arthrosis. Electronically Signed: Gage Valenzuela MD at 9:25 EDT ,
--- NOTE | 2022-04-14 08:40 | RAD_ITS ---
STUDY: X-RAY - LEFT WRIST REASON FOR EXAM: Male, 62 years old. Pain, history of rheumatoid arthritis TECHNIQUE: 3 view(s) of the wrist were obtained. COMPARISON: 02/25/2013 FINDINGS: Progression of demineralization since the previous study. There has also been progression/worsening of previously described proximal arthrosis. There is severe radio scaphoid/lunate arthrosis with subchondral changes in the distal radius including subchondral cyst formation. There is stable positive ulnar variance with severe arthrosis and narrowing between the distal ulna and the lunate and triquetrum. Subchondral erosions are again noted in the distal ulna. Progression of intercarpal arthrosis, no demonstrated fracture. The carpal metacarpal joint spaces are fairly well-maintained and unchanged. Mild nonspecific soft tissue swelling RAD/Wrist min 3 Views IMPRESSION: Progression/worsening of arthrosis since the previous study as listed above. Findings are cystic with changes of rheumatoid arthritis with subchondral sclerosis and cyst formation noted in the distal radius and ulna. Electronically Signed: Gage Valenzuela MD at 9:38 EDT ,
--- NOTE | 2022-04-14 08:40 | RAD_ITS ---
STUDY: X-RAY CHEST REASON FOR EXAM: Male, 62 years old. Chest pain/pressure TECHNIQUE: PA and lateral views of the chest. COMPARISON: None. FINDINGS: The lungs are clear and expanded. There is no demonstrated pleural abnormality. Normal size heart. Normal mediastinum and teresa. Normal visualized pulmonary arteries. Normal visualized aortic arch and descending thoracic aorta. Normal visualized thoracic spine. Normal visualized ribs, clavicles, and shoulders. There is no demonstrated abnormality of the visualized soft tissue structures of the upper abdomen. RAD/Chest PA and Lateral IMPRESSION: Normal x-ray examination of the chest. Electronically Signed: Gage Valenzuela MD at 9:04 EDT ,
--- NOTE | 2022-04-14 08:40 | RAD_ITS ---
STUDY: X-RAY - RIGHT WRIST REASON FOR EXAM: Male, 62 years old. RHEUMATOID ARTHRITIS TECHNIQUE: 3 view(s) of the wrist were obtained. COMPARISON: 2012 FINDINGS: Progression of radius scaphoid arthrosis since the previous study with now moderate narrowing there is no subchondral cyst formation or sclerosis in either the distal radius or scaphoid or lunate. There is now a slightly positive ulnar variance noted with erosive changes noted in the ulnar styloid and narrowing of the space between the ulnar styloid and the triquetrum. The intracarpal joint spaces are fairly well-maintained as are the carpal metacarpal joint spaces.. No demonstrated fracture, mild soft tissue swelling RAD/Wrist min 3 Views IMPRESSION: Progression/worsening of the radial scaphoid joint space without subchondral changes or erosions. Positive ulnar variance has developed since the previous study with erosions now noted on the ulnar styloid that were not present on the previous study. Electronically Signed: Gage Valenzuela MD at 9:42 EDT ,
--- NOTE | 2022-04-14 08:40 | RAD_ITS ---
STUDY: X-RAY - RIGHT HAND REASON FOR EXAM: Male, 62 years old. RHEUMATOID ARTHRITIS TECHNIQUE: 3 view(s) of the hand. COMPARISON: 2013 FINDINGS: There is moderate radio scaphoid arthrosis which has progressed slightly since the previous study of 2013. There is neutral ulnar variance and there are now erosive changes noted in the ulnar styloid when compared to the previous study. Stable intercarpal arthrosis with stable first CMC joint arthrosis with stable subchondral erosions in the proximal first metacarpal. Stable severe first MCP joint arthrosis with subluxation and subchondral changes. There is also severe arthrosis with subchondral changes at the third metacarpophalangeal joint. There is now moderate second fourth and fifth MCP joint arthrosis which has progressed since the previous study. Stable PIP and DIP joint arthrosis. No demonstrated fracture, mild soft tissue swelling RAD/Hand Min 3 Views IMPRESSION: Progression/worsening of polyarticular arthrosis since previous study, particularly in the first and third metacarpophalangeal joints. No demonstrated fracture Mild nonspecific soft tissue swelling Electronically Signed: Gage Valenzuela MD at 9:32 EDT ,
[2022-04-14 08:59] LABS: Vitamin B12 498 pg/mL (211-911)
== END | disposition home or self-care (01) ==
PROVIDERS: PCP Family Medicine; Referring Provider Internal Medicine Rheumatology; Visit Provider Internal Medicine Rheumatology
DX: M06.041 Rheumatoid arthritis without rheumatoid factor, right hand (principal); R07.89 Other chest pain; Z79.899 Other long term (current) drug therapy
CPT/HCPCS: 36415; 71046; 73110; 73130; 82607; 82746

== ENCOUNTER 2022-06-30 10:26 | Outpatient (RCR) | payer BC, SELFPAY ==
[2022-06-30 11:23] LABS: Absolute Lymphocyte Count 0.92 X10^3/uL (0.83-4.51); Absolute Neutrophil Count 2.6 X10^3/uL (2.0-7.7); Basophil# 0.02 X10^3/uL; Basophil% 0.5 % (0-1); Eosinophils% 2.3 % (0-5); Hematocrit 46.7 % (40-54); Hemoglobin 15.4 g/dL (13.0-16.5); Lymphocyte # 0.92 X10^3/ul (0.83-4.51); Lymphocyte % 21.1 % (19-41); Mean Platelet Vol. 9.9 fl (6.2-12.0); Monocyte# 0.74 X10^3/uL; NRBC Flagged by Analyzer 0 % (0-5); Neutrophil # 2.55 X10^3/uL (2.7-7.7); Neutrophil % 58.6 % (47-70); Platelet Count 198 K/mm3 (150-450); RBC Distribution Width CV 12.6 % (11.6-14.6); RBC Distribution Width SD 46.5 fl (35.1-43.9); Red Blood Count 4.67 M/mm3 (4.6-6.2); White Blood Count 4.4 K/mm3 (4.4-11.0)
[2022-06-30 11:24] LABS: Erythrocyte Sedimentation Rate 2 mm/hr (0-20)
[2022-06-30 11:28] LABS: AST(SGOT) 17 U/L (15-37); Alanine Aminotransfer ALT/SGPT 34 U/L (16-61); BUN 20 mg/dL (7-18); CRP < 2.90 mg/L (0.0-3.0); Creatinine, Serum 1.11 mg/dL (0.70-1.30); EST Glomerular Filtration Rate 71 mL/min (>60); Est Glom Filt Rate - Afr Amer 86 mL/min (>60)
== END 2022-06-30 18:00 | disposition home or self-care (01) ==
LOC: LAB 10:26
PROVIDERS: Family Provider Family Medicine; PCP Family Medicine; Referring Provider Family Medicine; Visit Provider Internal Medicine Rheumatology
DX: M06.079 Rheumatoid arthritis without rheumatoid factor, unspecified ankle and foot (principal)
CPT/HCPCS: 36415; 82565; 84450; 84460; 84520; 85025; 85652; 86140

== ENCOUNTER 2022-09-29 10:20 | Outpatient (RCR) | payer BC, SELFPAY ==
[2022-09-29 11:57] LABS: Erythrocyte Sedimentation Rate 5 mm/hr (0-20)
[2022-09-29 12:06] LABS: Absolute Lymphocyte Count 0.94 X10^3/uL (0.83-4.51); Absolute Neutrophil Count 2.2 X10^3/uL (2.0-7.7); Basophil# 0.02 X10^3/uL; Basophil% 0.5 % (0-1); Eosinophil# 0.09 X10^3/uL; Eosinophils% 2.3 % (0-5); Hemoglobin 15.5 g/dL (13.0-16.5); Lymphocyte # 0.94 X10^3/ul (0.83-4.51); Lymphocyte % 24.3 % (19-41); Mean Corp Hgb Conc 33.7 g/dL (32-36); Mean Corpuscular Hgb 33.3 pg (27.0-32.0); Mean Corpuscular Volume 98.9 fL (80-94); Mean Platelet Vol. 10.1 fl (6.2-12.0); Monocyte# 0.67 X10^3/uL; Monocyte% 17.3 % (0-10); NRBC Flagged by Analyzer 0 % (0-5); Neutrophil # 2.15 X10^3/uL (2.7-7.7); Neutrophil % 55.6 % (47-70); Platelet Count 175 K/mm3 (150-450); RBC Distribution Width CV 12.9 % (11.6-14.6); RBC Distribution Width SD 46.5 fl (35.1-43.9); Red Blood Count 4.65 M/mm3 (4.6-6.2); White Blood Count 3.9 K/mm3 (4.4-11.0)
[2022-09-29 12:22] LABS: AST(SGOT) 20 U/L (15-37); Alanine Aminotransfer ALT/SGPT 32 U/L (16-61); BUN 18 mg/dL (7-18); CRP < 2.90 mg/L (0.0-3.0); EST Glomerular Filtration Rate 72 mL/min (>60); Est Glom Filt Rate - Afr Amer 87 mL/min (>60)
== END 2022-10-21 23:14 | disposition home or self-care (01) ==
LOC: LAB 10:20
PROVIDERS: Family Provider Family Medicine; PCP Family Medicine; Referring Provider Family Medicine; Visit Provider Internal Medicine Rheumatology
DX: M06.079 Rheumatoid arthritis without rheumatoid factor, unspecified ankle and foot (principal)
CPT/HCPCS: 36415; 82565; 84450; 84460; 84520; 85025; 85652; 86140

== ENCOUNTER → 2022-11-02 | Outpatient (CLI) | payer BC, SELFPAY ==
--- NOTE | 2022-11-02 11:28 | BD_ITS ---
STUDY: DUAL ENERGY X-RAY ABSORPTIOMETRY / DXA REASON FOR EXAM: Male, 62 years old. Z79.52 TECHNIQUE: Bone Mineral Density (BMD) measurements of lumbar spine and left hip were obtained. COMPARISON: None. FINDINGS: Lumbar Spine (L1-L4): g/cm2 (1.329) / T-score (2.4) / Z-score (3.1) Findings are suggestive of normal bone density with a low fracture risk. Left Femur Total: g/cm2 (1.114) / T-score (0.5) / Z-score (1.0) Left Femoral Neck: g/cm2 (0.886) / T-score (-0.3) / Z-score (0.7) BD/Dexa Bone Density Study IMPRESSION: The patient is considered normal as outlined below according to World Uday Organization (WHO) criteria with a low fracture risk. Reference Information: The T-score is the number of standard deviations above or below the standard which is normal for young adults at their peak bone mineral density. The World Health Organization (WHO) interprets the T-scores as follows: Above -1 Normal bone density Between -1 and -2.5 Osteopenia Equal to / or below -2.5 Osteoporosis As a practical clinical guideline, osteopenia may be graded as follows: Mild -1 through -1.5 Moderate -1.6 through -2.0 Severe -2.1 through -2.4 The Z-score is the number of standard deviations above or below age-matched controls. A Z-score of less than -1.5 would be considered abnormal. References: 1. NIH Osteoporosis and Related Bone Diseases www osteo.org 2. International Society for Clinical Densitometry www iscd.org 3. National Osteoporosis Foundation www nof.org Electronically Signed: Vasu Avila MD at 12:07 EDT ,
== END | disposition home or self-care (01) ==
PROVIDERS: PCP Family Medicine; Referring Provider Internal Medicine Rheumatology; Visit Provider Internal Medicine Rheumatology
DX: Z13.820 Encounter for screening for osteoporosis (principal); Z79.52 Long term (current) use of systemic steroids
CPT/HCPCS: 77080

== ENCOUNTER → 2022-11-02 | Outpatient (CLI) | payer BC, SELFPAY ==
[2022-11-02 13:42] LABS: Cholesterol 172 mg/dL (200); Glucose 104 mg/dL (74-106); High Density Lipoprotein 67 mg/dL; Thyroid Stim Hormone (TSH) 1.19 uIU/mL (0.358-3.74); Triglycerides 71 mg/dL; Very Low Density Lipoprotein 14 mg/dL (5-40)
== END | disposition home or self-care (01) ==
LOC: LAB 11:48
DX: Z00.00 Encounter for general adult medical examination without abnormal findings (principal); Z13.29 Encounter for screening for other suspected endocrine disorder
CPT/HCPCS: 36415; 80061; 82947; 84443

== ENCOUNTER 2023-01-02 14:27 | Outpatient (RCR) | payer BC, SELFPAY ==
[2023-01-02 15:39] LABS: Absolute Lymphocyte Count 0.83 X10^3/uL (0.83-4.51); Absolute Neutrophil Count 2.7 X10^3/uL (2.0-7.7); Basophil# 0.03 X10^3/uL; Basophil% 0.7 % (0-1); Eosinophil# 0.04 X10^3/uL; Hematocrit 45.5 % (40-54); Lymphocyte # 0.83 X10^3/ul (0.83-4.51); Mean Corpuscular Hgb 33.2 pg (27.0-32.0); Mean Corpuscular Volume 100.7 fL (80-94); Mean Platelet Vol. 10.5 fl (6.2-12.0); Monocyte# 0.57 X10^3/uL; Monocyte% 13.7 % (0-10); NRBC Flagged by Analyzer 0 % (0-5); Neutrophil # 2.67 X10^3/uL (2.7-7.7); Neutrophil % 64.1 % (47-70); Platelet Count 158 K/mm3 (150-450); RBC Distribution Width CV 12.8 % (11.6-14.6); RBC Distribution Width SD 47.8 fl (35.1-43.9); Red Blood Count 4.52 M/mm3 (4.6-6.2); White Blood Count 4.2 K/mm3 (4.4-11.0)
[2023-01-02 16:15] LABS: Erythrocyte Sedimentation Rate < 1 mm/hr (0-20)
[2023-01-02 16:26] LABS: AST(SGOT) 24 U/L (15-37); Alanine Aminotransfer ALT/SGPT 38 U/L (16-61); BUN 13 mg/dL (7-18); CRP < 2.90 mg/L (0.0-3.0); Creatinine, Serum 1.01 mg/dL (0.70-1.30); EST Glomerular Filtration Rate 79 mL/min (>60); Est Glom Filt Rate - Afr Amer 96 mL/min (>60)
== END 2023-01-02 18:00 | disposition home or self-care (01) ==
LOC: LAB 14:27
PROVIDERS: Family Provider Family Medicine; PCP Nurse Practitioner Family; Referring Provider Internal Medicine Rheumatology; Visit Provider Internal Medicine Rheumatology
DX: M06.079 Rheumatoid arthritis without rheumatoid factor, unspecified ankle and foot (principal)
CPT/HCPCS: 36415; 82565; 84450; 84460; 84520; 85025; 85652; 86140

== ENCOUNTER → 2023-01-05 | Outpatient (CLI) | payer BC, SELFPAY ==
--- NOTE | 2023-01-05 11:35 | RAD_ITS ---
STUDY: X-RAY - RIGHT ELBOW REASON FOR EXAM: Male, 62 years old. Rheumatoid arthritis with elbow pain. TECHNIQUE: 4 view(s) of the elbow. COMPARISON: None. FINDINGS: Subchondral cyst in the olecranon. Mild loss of cartilage of the radiocapitellar and ulnotrochlear articulations. Normal soft tissues. RAD/Elbow min 3 Views IMPRESSION: Arthrosis with subchondral cyst in the olecranon. Electronically Signed: Chemo Canseco MD at 12:37 EDT ,
== END | disposition home or self-care (01) ==
LOC: RAD 11:31
PROVIDERS: PCP Nurse Practitioner Family
DX: M06.071 Rheumatoid arthritis without rheumatoid factor, right ankle and foot (principal)
CPT/HCPCS: 73080

== ENCOUNTER 2023-02-09 07:55 | Day surgery (SDC) | payer BC, SELFPAY ==
[2023-02-09] VITALS (7 sets, daily range): BP systolic 90–107; BP diastolic 69–75; PULSE 55–83; RESP 16–18; TEMP 36.1–36.2; O2SAT 94–98; BMI 29.2
[2023-02-09] MEDS: Lactated Ringers 1,000 ML 15 ML IV (08:19)
--- NOTE | 2023-02-09 08:23 | HP.PCM_ITS ---
HPI - General General Date of Admission: 02/09/23 Date of Service: 02/09/23 Chief Complaint: Screening colonoscopy HPI Narrative WALDEMAR BEARDEN, is a 62 M who presents today for screening colonoscopy. He had a screening colonoscopy possibly 12 years ago and was normal. He does have a strong family history of colon cancer in his brother and father. He is not not had any history of polyps. He denies abdominal pain. Denies any cramping. He denies any lower GI bleeding. All other 16 review systems are negative except those pertinent positive mentioned HPI. [facility], [facility] Medical History (Updated 02/08/23 @ 13:39 by Edie Masterson) Family hx of colon cancer High cholesterol History of edema History of steroid therapy History of stress test Hyperlipidemia Non-smoker Personal history of kidney stones Rheumatoid arthritis Wears glasses Home Medications acetaminophen 500 mg tablet (Tylenol Extra Strength) 500 mg PO ONCE PRN pain 0 11/17/22 [History Last Taken Unknown] multivitamin 1 tab PO DAILY 11/17/22 [History Last Taken Unknown] prednisone 2.5 mg tablet 5 mg PO DAILY 11/17/22 [History Last Taken Unknown] rosuvastatin 10 mg tablet 10 mg PO DAILY 11/17/22 [History Last Taken Unknown] tamsulosin 0.4 mg capsule 0.4 mg PO DAILY 11/17/22 [History Last Taken Unknown] tocilizumab 162 mg/0.9 mL subcutaneous pen injector (Actemra ACTPen) 162 mg subcut Q2W 11/17/22 [History Last Taken Unknown] Allergy/AdvReac Type Severity Reaction Status Date / Time No Known Allergies Allergy Verified 02/08/23 13:30 Family History (Updated 11/17/22 @ 09:22 by Homa Vega) Father Colon cancer Heart disease Brother Colon cancer Heart disease CVA (cerebral vascular accident) Diabetes Surgical History (Updated 02/08/23 @ 13:39 by Edie Masterson) History of back surgery History of colonoscopy Hx of knee surgery Social History (Updated 11/17/22 @ 09:23 by Homa Vega) current occupational status: employed Smoking Status: Never smoker ROS Review of Systems ROS Unobtainable: other Constitutional Constitutional: Denies fatigue, fever(s), poor appetite, weight gain or weight loss ENT HEENT: Denies mouth lesions Cardiovascular Cardiovascular: Denies abdominal bloating, abdominal edema or abdominal pain Respiratory/Chest Respiratory/Chest: Denies change in mental status, change in phlegm color, chest congestion or chest tightness Gastrointestinal Gastrointestinal: Denies belching, bloating, change in bowel habits, change in stool character, chewing difficulty, coffee ground emesis, constipation, cramping, diarrhea, dyspepsia, dysphagia, early satiety, excessive flatus, fecal incontinence, heartburn, hematemesis, hematochezia, hemorrhoids, loose stools, melena, nausea, odynophagia, rectal bleeding, tenesmus, vomiting or weight changes Genitourinary Genitourinary: Denies abdominal discomfort, burning urination or itching Musculoskeletal Musculoskeletal: Reports as per HPI; Denies muscle weakness or myalgias Integumentary Integumentary: Denies jaundice Neurologic Neurologic: Denies lack of coordination or weakness Psychiatric Psychiatric: Denies confusion, depression, memory loss, mood swings, paranoia or suicidal ideation Endocrine Endocrinology: Denies systems reviewed and no addt'l complaints, except as documented Hematologic/Lymphatic Hematologic/Lymphatic: Denies anemia, easy bleeding, easy bruising or lymphadenopathy Allergic/Immunologic Allergic/Immunologic: Denies systems reviewed and no addt'l complaints, except as documented Physical Exam Const alert, oriented x3, no apparent distress, healthy appearing and well nourished General Appearance: cooperative, comfortable, well kempt and well developed Orientation / Consciousness: awake and oriented to person HEENT Head and Scalp: normocephalic and atraumatic Face and Sinus: normal facial exam Mouth: oral and palatal mucosa normal Eyes General Eye: normal appearance of both eyes Neck full ROM Lymph Lymphatic: no lymphadenopathy noted Chest inspection of chest normal Resp normal respiratory effort and no use of accessory muscles Cardio regular rate and regular rhythm GI normal to inspection, nondistended, normoactive bowel sounds, soft to palpation, non-tender, non-distended and no masses Auscultation: normoactive bowel sounds Palpation: soft Percussion: normal to percussion Rectal Exam: visual inspection normal and normal sphincter tone no CVA tenderness Back/Spine no CVA tenderness and normal ROM Extremity normal to inspection Peripheral Pulses: Yes pulses 2+ throughout Skin no rashes or lesions noted General Skin Exam: no breakdown, elasticity normal and turgor normal Neuro oriented x3 Motor Exam: strength 5/5 throughout Psych mental status grossly normal Appearance: grossly normal Attitude: calm Activity / Motor Behavior: appropriate eye contact Speech: normal speech Thought Process: normal thought process Thought Content: normal thought content Attention / Concentration: attention grossly intact Memory / Cognition: memory grossly intact Insight: insight good Judgement: judgement good Assessment & Plan Assessment/Plan (1) Encounter for screening for malignant neoplasm of colon: PLAN: He was explained alternatives, risk, benefits including not withstanding bleeding, infection, sepsis, perforation, need for emergent surgery . He will have an ASA of 2.
--- NOTE | 2023-02-09 09:00 | COLBX_PTH ---
PATIENT: WALDEMAR BEARDEN LOC: EN U#:[id number] AGE/SX: 62/M ROOM: RE02/09/[address]: Dr. Kaz Fernandez DO : 1960 BED: DIS: 02/09/2023 SPEC #: [id number] RECD: 02/09/23 10:42 STATUS: PHILLIP REMartha #: [id number] BREEZY: 02/09/23 09:[address]: Kaz Fernandez DEPT: SURGICAL PATHOLOGY RECD BY: Margie Pizano ENTERED: 02/09/23 11:55 SP TYPE: COLON BX OTHR DR: Faviola Hawk, [employer]-C Tissues: Cecum, NOS Procedures: Surgery Specimen Level IV HEADER OPERATION: Colonoscopy - open access (MAC) PRE-OP DIAGNOSIS: Routine colon screening TISSUE SUBMITTED: Cecal polyp biopsy MICROSCOPIC DIAGNOSIS Cecal polyp, biopsy: Tubular adenoma. AM:kemi 02/10/2023 MICROSCOPIC DESCRIPTION Slides are reviewed. GROSS DESCRIPTION Received in fixative is one container labeled with the patient's name and designated cecal polyp biopsy. The specimen consists of two irregular fragments of light ellis soft tissue that in aggregate measure 0.6 x 0.3 x 0.1 cm. The specimen is totally submitted in one cassette. / SJ:rg 02/09/2023 TC:5 CPT: 76996
--- NOTE | 2023-02-09 09:18 | OP.CCLET_ITS ---
02/09/2023 Anthony Gee Re : Colonoscopy procedure for Dejan Lambert Dear Kenn This procedure was performed on January. My impressions and recommendations are as follows: Impressions : - One 7 mm polyp in the cecum, removed with a cold snare. Resected and retrieved. - The examination was otherwise normal on direct and retroflexion views. Recommendations : - Discharge patient to home (ambulatory). - Resume previous diet. - Continue present medications. - Await pathology results. - Repeat colonoscopy in 5 years for surveillance. My findings are described in the full procedure note, which is enclosed. If I can be of further assistance, please feel free to contact me at . Sincerely, Kaz Fernandez, 02/09/2023 9:18:22 AM This report has been signed electronically.
--- NOTE | 2023-02-09 09:18 | OP.COLON_ITS ---
Patient Name: Dejan Lambert Procedure Date: 02/09/2023 8:59 AM Date of : 1960 Age: 62 Procedure: Colonoscopy Indications: Screening for colorectal malignant neoplasm Providers: Kaz Fernandez DO Referring MD: Kaz Fernandez DO Medicines: Monitored Anesthesia Care Patient Profile: This is a 62 year old male. Refer to note in patient chart for documentation of history and physical. Last Colonoscopy: 10 years ago. Complications: No immediate complications. Procedure: Pre-Anesthesia Assessment: - Prior to the procedure, a History and Physical was performed, and patient medications and allergies were reviewed. The patient is competent. The risks and benefits of the procedure and the sedation options and risks were discussed with the patient. All questions were answered and informed consent was obtained. Patient identification and proposed procedure were verified by the physician in the pre-procedure area. Mental Status Examination: alert and oriented. Airway Examination: normal oropharyngeal airway and neck mobility. Respiratory Examination: clear to auscultation. Prophylactic Antibiotics: The patient does not require prophylactic antibiotics. Prior Anticoagulants: The patient has taken no previous anticoagulant or antiplatelet agents. After reviewing the risks and benefits, the patient was deemed in satisfactory condition to undergo the procedure. The anesthesia plan was to use monitored anesthesia care (MAC). Immediately prior to administration of medications, the patient was re-assessed for adequacy to receive sedatives. The heart rate, respiratory rate, oxygen saturations, blood pressure, adequacy of pulmonary ventilation, and response to care were monitored throughout the procedure. The physical status of the patient was re-assessed after the procedure. After I obtained informed consent, the scope was passed under direct vision. Throughout the procedure, the patient's blood pressure, pulse, and oxygen saturations were monitored continuously. The Colonoscope was introduced through the anus and advanced to the cecum, identified by appendiceal orifice and ileocecal valve. The colonoscopy was performed without difficulty. The patient tolerated the procedure well. The quality of the bowel preparation was good. Scope In: 9:01:38 AM Scope Withdrawal Time 0 hours 9 minutes 22 seconds Scope Out: 9:13:06 AM Total Procedure Duration Time 0 hours 11 minutes 28 seconds Findings: The perianal and digital rectal examinations were normal. A 7 mm polyp was found in the cecum. The polyp was sessile. The polyp was removed with a cold snare. Resection and retrieval were complete. Verification of patient identification for the specimen was done. Estimated blood loss was minimal. The exam was otherwise without abnormality on direct and retroflexion views. Impression: - One 7 mm polyp in the cecum, removed with a cold snare. Resected and retrieved. - The examination was otherwise normal on direct and retroflexion views. Recommendation: - Discharge patient to home (ambulatory). - Resume previous diet. - Continue present medications. - Await pathology results. - Repeat colonoscopy in 5 years for surveillance. Procedure Code(s): --- Professional --- 17131, Colonoscopy, flexible; with removal of tumor(s), polyp(s), or other lesion(s) by snare technique CPT copyright 2017 [employer]. All rights reserved. The codes documented in this report are preliminary and upon tile classifier review may be revised to meet current compliance requirements. Kaz Fernandez DO 02/09/2023 9:18:22 AM This report has been signed electronically. Number of Addenda: 0 Note Initiated On: 02/09/2023 8:59 AM
== END 2023-02-09 09:45 | disposition home or self-care (01) ==
LOC: EN 07:55 → AC 07:57
PROVIDERS: PCP Nurse Practitioner Family; Referring Provider Nurse Practitioner Family; Visit Provider Internal Medicine Gastroenterology
PROC: 0DJD8ZZ Inspection of Lower Intestinal Tract, Via Natural or Artificial Opening Endoscopic (ICD-10-PCS; CPT 45378; principal; 2023-02-09 08:55)
DX: Z12.11 Encounter for screening for malignant neoplasm of colon (principal); M06.9 Rheumatoid arthritis, unspecified; D12.0 Benign neoplasm of cecum; E78.00 Pure hypercholesterolemia, unspecified; Z80.0 Family history of malignant neoplasm of digestive organs; Z79.899 Other long term (current) drug therapy; Z87.442 Personal history of urinary calculi
CPT/HCPCS: 45385; 88305; J7120; J2405

== ENCOUNTER 2023-04-04 08:21 | Outpatient (RCR) | payer BC, SELFPAY ==
[2023-04-04 08:59] LABS: Erythrocyte Sedimentation Rate < 1 mm/hr (0-20)
[2023-04-04 09:01] LABS: Absolute Lymphocyte Count 0.97 X10^3/uL (0.83-4.51); Absolute Neutrophil Count 2.4 X10^3/uL (2.0-7.7); Basophil# 0.05 X10^3/uL; Basophil% 1.2 % (0-1); Eosinophil# 0.11 X10^3/uL; Eosinophils% 2.6 % (0-5); Hematocrit 47.5 % (40-54); Hemoglobin 15.6 g/dL (13.0-16.5); Lymphocyte # 0.97 X10^3/ul (0.83-4.51); Lymphocyte % 23.3 % (19-41); Mean Corp Hgb Conc 32.8 g/dL (32-36); Mean Corpuscular Hgb 33.2 pg (27.0-32.0); Mean Corpuscular Volume 101.1 fL (80-94); Monocyte# 0.66 X10^3/uL; Monocyte% 15.8 % (0-10); NRBC Flagged by Analyzer 0 % (0-5); Neutrophil # 2.37 X10^3/uL (2.7-7.7); Neutrophil % 56.9 % (47-70); Platelet Count 178 K/mm3 (150-450); RBC Distribution Width CV 12.6 % (11.6-14.6); RBC Distribution Width SD 47.7 fl (35.1-43.9); White Blood Count 4.2 K/mm3 (4.4-11.0)
[2023-04-04 09:24] LABS: AST(SGOT) 18 U/L (15-37); Alanine Aminotransfer ALT/SGPT 35 U/L (16-61); BUN 28 mg/dL (7-18); CRP < 2.90 mg/L (0.0-3.0); Creatinine, Serum 1.16 mg/dL (0.70-1.30); EST Glomerular Filtration Rate 67 mL/min (>60); Est Glom Filt Rate - Afr Amer 82 mL/min (>60)
== END 2023-04-04 18:00 | disposition home or self-care (01) ==
LOC: LAB 08:21
PROVIDERS: Family Provider Family Medicine; PCP Nurse Practitioner Family; Referring Provider Internal Medicine Rheumatology; Visit Provider Internal Medicine Rheumatology
DX: M06.079 Rheumatoid arthritis without rheumatoid factor, unspecified ankle and foot (principal)
CPT/HCPCS: 36415; 82565; 84450; 84460; 84520; 85025; 85652; 86140

== ENCOUNTER 2023-07-03 09:45 | Outpatient (RCR) | payer BC, SELFPAY ==
[2023-07-03 10:41] LABS: Absolute Neutrophil Count 1.8 X10^3/uL (2.0-7.7); Basophil# 0.03 X10^3/uL; Basophil% 0.8 % (0-1); Eosinophils% 2.6 % (0-5); Hematocrit 48.8 % (40-54); Hemoglobin 15.9 g/dL (13.0-16.5); Lymphocyte % 28.6 % (19-41); Mean Corp Hgb Conc 32.6 g/dL (32-36); Mean Corpuscular Hgb 32.9 pg (27.0-32.0); Mean Corpuscular Volume 100.8 fL (80-94); Mean Platelet Vol. 10.2 fl (6.2-12.0); Monocyte# 0.75 X10^3/uL; Monocyte% 19.5 % (0-10); NRBC Flagged by Analyzer 0 % (0-5); Neutrophil # 1.84 X10^3/uL (2.7-7.7); Platelet Count 166 K/mm3 (150-450); RBC Distribution Width CV 12.9 % (11.6-14.6); RBC Distribution Width SD 48.1 fl (35.1-43.9); Red Blood Count 4.84 M/mm3 (4.6-6.2); White Blood Count 3.8 K/mm3 (4.4-11.0)
[2023-07-03 10:45] LABS: Erythrocyte Sedimentation Rate < 1 mm/hr (0-20)
[2023-07-03 11:14] LABS: AST(SGOT) 15 U/L (15-37); Alanine Aminotransfer ALT/SGPT 29 U/L (16-61); BUN 17 mg/dL (7-18); CRP < 2.90 mg/L (0.0-3.0); Creatinine, Serum 1.21 mg/dL (0.70-1.30); EST Glomerular Filtration Rate 64 mL/min (>60); Est Glom Filt Rate - Afr Amer 78 mL/min (>60)
== END 2023-07-23 18:00 | disposition home or self-care (01) ==
LOC: LAB 09:45
PROVIDERS: Family Provider Family Medicine; PCP Nurse Practitioner Family; Referring Provider Internal Medicine Rheumatology; Visit Provider Internal Medicine Rheumatology
DX: M06.079 Rheumatoid arthritis without rheumatoid factor, unspecified ankle and foot (principal)
CPT/HCPCS: 36415; 82565; 84450; 84460; 84520; 85025; 85652; 86140

== ENCOUNTER → 2023-07-14 | Outpatient (CLI) | payer BC, SELFPAY ==
[2023-07-14 14:33] LABS: Hepatitis B Surface Antibody Non-Reactive; Hepatitis B Surface Antigen Non-Reactive (Nonreactive); Hepatitis C Antibody Non-Reactive (Nonreactive)
[2023-07-17 22:06] LABS: Hepatitis B Core Ab Total Negative (Negative); QNTFERON TB Mitogen Value > 10.00 IU/mL (.); QNTFERON TB Nil Value 0 IU/mL (.); QNTFERON TB1+ Ag Value 0 IU/mL (.); QNTFERON TB2+ Ag Value 0 IU/mL (.); QNTIFERON TB Positive Criteria Negative (Negative)
== END | disposition home or self-care (01) ==
LOC: LAB 12:39
PROVIDERS: PCP Nurse Practitioner Family; Referring Provider Internal Medicine Rheumatology
DX: M06.079 Rheumatoid arthritis without rheumatoid factor, unspecified ankle and foot (principal); Z79.899 Other long term (current) drug therapy
CPT/HCPCS: 36415; 86480; 86704; 86706; 86803; 87340

== ENCOUNTER 2023-10-12 11:05 | Outpatient (RCR) | payer BC, SELFPAY ==
[2023-10-12 11:46] LABS: Erythrocyte Sedimentation Rate < 1 mm/hr (0-20)
[2023-10-12 11:48] LABS: Absolute Lymphocyte Count 0.85 X10^3/uL (0.83-4.51); Absolute Neutrophil Count 2.1 X10^3/uL (2.0-7.7); Basophil# 0.04 X10^3/uL; Basophil% 1.1 % (0-1); Eosinophil# 0.11 X10^3/uL; Eosinophils% 2.9 % (0-5); Hematocrit 49.8 % (40-54); Hemoglobin 16.4 g/dL (13.0-16.5); Lymphocyte # 0.85 X10^3/ul (0.83-4.51); Lymphocyte % 22.4 % (19-41); Mean Corp Hgb Conc 32.9 g/dL (32-36); Mean Corpuscular Hgb 32.7 pg (27.0-32.0); Mean Corpuscular Volume 99.2 fL (80-94); Monocyte# 0.65 X10^3/uL; Monocyte% 17.1 % (0-10); NRBC Flagged by Analyzer 0 % (0-5); Neutrophil # 2.14 X10^3/uL (2.7-7.7); Neutrophil % 56.2 % (47-70); Platelet Count 191 K/mm3 (150-450); RBC Distribution Width CV 12.7 % (11.6-14.6); RBC Distribution Width SD 46.5 fl (35.1-43.9); Red Blood Count 5.02 M/mm3 (4.6-6.2); White Blood Count 3.8 K/mm3 (4.4-11.0)
[2023-10-12 12:04] LABS: AST(SGOT) 22 U/L (15-37); Alanine Aminotransfer ALT/SGPT 37 U/L (16-61); BUN 18 mg/dL (7-18); CRP < 2.90 mg/L (0.0-3.0); EST Glomerular Filtration Rate 65 mL/min (>60); Est Glom Filt Rate - Afr Amer 78 mL/min (>60)
== END 2023-10-22 01:03 | disposition home or self-care (01) ==
LOC: LAB 11:05
PROVIDERS: Family Provider Family Medicine; PCP Nurse Practitioner Family; Referring Provider Internal Medicine Rheumatology; Visit Provider Internal Medicine Rheumatology
DX: M06.079 Rheumatoid arthritis without rheumatoid factor, unspecified ankle and foot (principal)
CPT/HCPCS: 36415; 82565; 84450; 84460; 84520; 85025; 85652; 86140

== ENCOUNTER → 2023-11-06 | Outpatient (CLI) | payer BC, SELFPAY ==
[2023-11-06 13:13] LABS: Cholesterol 216 mg/dL (200); High Density Lipoprotein 61 mg/dL; Triglycerides 141 mg/dL; Very Low Density Lipoprotein 28 mg/dL (5-40)
[2023-11-06 14:00] LABS: Hemoglobin A1c 5.6 % (3.8-5.6)
== END | disposition home or self-care (01) ==
LOC: BFHLAB 09:36
PROVIDERS: PCP Nurse Practitioner Family; Visit Provider Nurse Practitioner Family
DX: E78.5 Hyperlipidemia, unspecified (principal); R73.01 Impaired fasting glucose; R35.0 Frequency of micturition
CPT/HCPCS: 36415; 80061; 83036; 84153; G0103

== ENCOUNTER 2024-01-06 08:20 | Outpatient (RCR) | payer BC, SELFPAY ==
[2024-01-06 09:25] LABS: Absolute Lymphocyte Count 1.06 X10^3/uL (0.83-4.51); Absolute Neutrophil Count 1.7 X10^3/uL (2.0-7.7); Basophil# 0.02 X10^3/uL; Basophil% 0.6 % (0-1); Eosinophil# 0.09 X10^3/uL; Eosinophils% 2.7 % (0-5); Hematocrit 47.4 % (40-54); Hemoglobin 15.5 g/dL (13.0-16.5); Lymphocyte # 1.06 X10^3/ul (0.83-4.51); Lymphocyte % 31.5 % (19-41); Mean Corp Hgb Conc 32.7 g/dL (32-36); Mean Corpuscular Hgb 32.7 pg (27.0-32.0); Mean Platelet Vol. 10.4 fl (6.2-12.0); Monocyte# 0.54 X10^3/uL; NRBC Flagged by Analyzer 0 % (0-5); Neutrophil # 1.66 X10^3/uL (2.7-7.7); Neutrophil % 49.2 % (47-70); Platelet Count 178 K/mm3 (150-450); RBC Distribution Width CV 12.8 % (11.6-14.6); RBC Distribution Width SD 47.5 fl (35.1-43.9); Red Blood Count 4.74 M/mm3 (4.6-6.2); White Blood Count 3.4 K/mm3 (4.4-11.0)
[2024-01-06 09:58] LABS: AST(SGOT) 28 U/L (15-37); Alanine Aminotransfer ALT/SGPT 37 U/L (16-61); BUN 14 mg/dL (7-18); CRP < 2.90 mg/L (0.0-3.0); Creatinine, Serum 1.04 mg/dL (0.70-1.30); EST Glomerular Filtration Rate 76 mL/min (>60); Est Glom Filt Rate - Afr Amer 92 mL/min (>60)
[2024-01-06 10:11] LABS: Erythrocyte Sedimentation Rate < 1 mm/hr (0-20)
== END 2024-01-06 18:00 | disposition home or self-care (01) ==
LOC: LAB 08:20
PROVIDERS: Family Provider Family Medicine; PCP Nurse Practitioner Family; Referring Provider Internal Medicine Rheumatology; Visit Provider Internal Medicine Rheumatology
DX: M06.079 Rheumatoid arthritis without rheumatoid factor, unspecified ankle and foot (principal)
CPT/HCPCS: 36415; 82565; 84450; 84460; 84520; 85025; 85652; 86140

== ENCOUNTER 2024-04-10 13:49 | Outpatient (RCR) | payer MEDICARE, OTHER, SELFPAY ==
[2024-04-05 15:56] LABS: Iron 143 ug/dL (65-175); Iron Binding Capacity,Total 352 ug/dL (250-450); PERCENT IRON SATURATION 40.6 % (15.0-55.0)
[2024-04-05 17:49] LABS: Vitamin B12 564 pg/mL (211-911)
[2024-04-10 14:42] LABS: Absolute Lymphocyte Count 0.88 X10^3/uL (0.83-4.51); Absolute Neutrophil Count 3.5 X10^3/uL (2.0-7.7); Basophil# 0.05 X10^3/uL; Eosinophil# 0.08 X10^3/uL; Eosinophils% 1.5 % (0-5); Hematocrit 42.6 % (40-54); Hemoglobin 14.2 g/dL (13.0-16.5); Lymphocyte # 0.88 X10^3/ul (0.83-4.51); Lymphocyte % 16.9 % (19-41); Mean Corp Hgb Conc 33.3 g/dL (32-36); Mean Corpuscular Hgb 32.9 pg (27.0-32.0); Mean Corpuscular Volume 98.8 fL (80-94); Monocyte# 0.69 X10^3/uL; Monocyte% 13.2 % (0-10); NRBC Flagged by Analyzer 0 % (0-5); Platelet Count 184 K/mm3 (150-450); RBC Distribution Width CV 12.9 % (11.6-14.6); RBC Distribution Width SD 46.5 fl (35.1-43.9); Red Blood Count 4.31 M/mm3 (4.6-6.2); White Blood Count 5.2 K/mm3 (4.4-11.0)
[2024-04-10 14:48] LABS: Erythrocyte Sedimentation Rate < 1 mm/hr (0-20)
[2024-04-10 15:49] LABS: AST(SGOT) 18 U/L (15-37); Alanine Aminotransfer ALT/SGPT 33 U/L (16-61); CRP < 2.90 mg/L (0.0-3.0); Creatinine, Serum 1.16 mg/dL (0.70-1.30); EST Glomerular Filtration Rate 67 mL/min (>60); Est Glom Filt Rate - Afr Amer 81 mL/min (>60)
== END 2024-04-10 18:00 | disposition home or self-care (01) ==
LOC: LAB 13:49
PROVIDERS: Family Provider Family Medicine; PCP Nurse Practitioner Family; Referring Provider Internal Medicine Rheumatology; Visit Provider Internal Medicine Rheumatology
DX: M06.079 Rheumatoid arthritis without rheumatoid factor, unspecified ankle and foot (principal); R74.8 Abnormal levels of other serum enzymes
CPT/HCPCS: 36415; 82565; 82607; 82746; 83540; 83550; 84450; 84460; 85025; 85652; 86140

== ENCOUNTER 2024-07-08 11:07 | Outpatient (RCR) | payer MEDICARE, OTHER, SELFPAY ==
[2024-07-08 11:48] LABS: Erythrocyte Sedimentation Rate 7 mm/hr (0-20)
[2024-07-08 11:51] LABS: Absolute Lymphocyte Count 0.77 X10^3/uL (0.83-4.51); Absolute Neutrophil Count 3.9 X10^3/uL (2.0-7.7); Basophil# 0.03 X10^3/uL; Basophil% 0.5 % (0-1); Eosinophil# 0.09 X10^3/uL; Eosinophils% 1.6 % (0-5); Hematocrit 43.8 % (40-54); Hemoglobin 14.7 g/dL (13.0-16.5); Lymphocyte # 0.77 X10^3/ul (0.83-4.51); Lymphocyte % 13.8 % (19-41); Mean Corp Hgb Conc 33.6 g/dL (32-36); Mean Corpuscular Volume 98.2 fL (80-94); Mean Platelet Vol. 9.4 fl (6.2-12.0); Monocyte% 14.4 % (0-10); NRBC Flagged by Analyzer 0 % (0-5); Neutrophil # 3.87 X10^3/uL (2.7-7.7); Neutrophil % 69.5 % (47-70); Platelet Count 201 K/mm3 (150-450); RBC Distribution Width CV 12.8 % (11.6-14.6); RBC Distribution Width SD 45.8 fl (35.1-43.9); Red Blood Count 4.46 M/mm3 (4.6-6.2); White Blood Count 5.6 K/mm3 (4.4-11.0)
[2024-07-08 13:23] LABS: AST(SGOT) 14 U/L (15-37); Alanine Aminotransfer ALT/SGPT 26 U/L (16-61); BUN 16 mg/dL (7-18); CRP < 2.90 mg/L (0.0-3.0); Creatinine, Serum 1.03 mg/dL (0.70-1.30); EST Glomerular Filtration Rate 77 mL/min (>60); Est Glom Filt Rate - Afr Amer 93 mL/min (>60)
== END 2024-07-08 18:00 | disposition home or self-care (01) ==
LOC: LAB 11:07
PROVIDERS: Family Provider Family Medicine; PCP Nurse Practitioner Family; Referring Provider Internal Medicine Rheumatology; Visit Provider Internal Medicine Rheumatology
DX: M06.079 Rheumatoid arthritis without rheumatoid factor, unspecified ankle and foot (principal)
CPT/HCPCS: 36415; 82565; 84450; 84460; 84520; 85025; 85652; 86140

== ENCOUNTER → 2024-10-11 | Outpatient (CLI) | payer MEDICARE, SELFPAY ==
--- NOTE | 2024-10-11 15:25 | RAD_ITS ---
EXAM: XR Chest, 2 Views CLINICAL INDICATION: R/O PNEUMONIA, COUGH TECHNIQUE: Frontal and lateral views of the chest. COMPARISON: No relevant prior studies available. FINDINGS: LUNGS AND PLEURAL SPACES: Unremarkable. No consolidation. No pneumothorax. HEART: Unremarkable. No cardiomegaly. MEDIASTINUM: Unremarkable. Normal mediastinal contour. BONES/JOINTS: Unremarkable. No acute fracture. RAD/Chest PA and Lateral IMPRESSION: No acute cardiopulmonary process. Reading [facility]
== END | disposition home or self-care (01) ==
LOC: RAD 15:21
PROVIDERS: PCP Nurse Practitioner Family; Referring Provider Nurse Practitioner Family; Visit Provider Nurse Practitioner Family
DX: R05.9 Cough, unspecified (principal)
CPT/HCPCS: 71046

== ENCOUNTER → 2024-11-06 | Outpatient (CLI) | payer MEDICARE, SELFPAY ==
[2024-11-06 13:47] LABS: Cholesterol 190 mg/dL (<=200); High Density Lipoprotein 68 mg/dL; Low Density Lipoprotein Calc. 107 mg/dL; PSA,Total - Annual Screen 0.51 ng/mL (0.02-4.00); Triglycerides 74 mg/dL; Very Low Density Lipoprotein 15 mg/dL (5-40); cholesterol:hdl ratio screen 2.78
[2024-11-06 13:55] LABS: Hemoglobin A1c 5.8 % (<=5.6)
== END | disposition home or self-care (01) ==
LOC: BFHLAB 10:10
PROVIDERS: PCP Nurse Practitioner Family; Visit Provider Nurse Practitioner Family
DX: R73.01 Impaired fasting glucose (principal); E78.5 Hyperlipidemia, unspecified; Z12.5 Encounter for screening for malignant neoplasm of prostate
CPT/HCPCS: 36415; 80061; 83036; 84153; G0103

== ENCOUNTER → 2024-11-28 | Outpatient (CLI) | payer MEDICARE, SELFPAY ==
--- NOTE | 2024-11-28 12:29 | ECHOD_ITS ---
Reason For Study Reason For Study: CHEST PAIN, EDEMA Procedure This was a 2D Doppler, Color Flow transthoracic echocardiogram. Exam performed in department. Left Ventricle Normal size and thickness. The LV systolic function is normal. EF is 65 %. Stage 1 diastolic dysfunction. Right Ventricle Mildly dilated right ventricle with mild RV systolic dysfunction. Atria The left and right atria are normal. Bubble contrast study is negative for PFO/ASD. Mitral Valve Normal mitral valve. Tricuspid Valve Normal tricuspid valve. Aortic Valve Trisinus/trileaflet aortic valve. Pulmonic Valve The pulmonic valve is not well visualized. Great Vessels Normal sized aortic root. Pericardium/Pleural No pericardial effusion. Medication 22 gauge I.V. with prn adaptor inserted into right arm. Performed a rapid injection of agitated mix of 9 cc saline and 1cc air to assess for atrial septal defect. MMode/2D Measurements & Calculations LVIDd: 5.4 cm IVSd: 0.92 cm LAV(MOD- bp): 46.6 ml LVIDs: 3.8 cm LVPWd: 1.0 cm FS: 29.2 % LAV(MOD- bp) Indexed: 19.3 ml/m2 LAV(MOD- sp2): 40.3 ml LAV(MOD- sp4): 44.0 ml SV(MOD- sp4): 38.5 ml LVAd ap4: 25.4 cm2 LVAd ap2: 23.3 cm2 LVLd ap4: 8.2 cm LVLd ap2: 7.9 cm SI(MOD- sp4): 15.9 ml/m2 EDV(MOD-sp4): 68.4 ml EDV(MOD-sp2): 59.0 ml EDV(sp4-el): 66.8 ml EDV(sp2-el): 58.9 ml LVAs ap4: 14.2 cm2 LVAs ap2: 12.9 cm2 LVLs ap4: 6.2 cm LVLs ap2: 6.2 cm ESV(MOD-sp4): 29.9 ml ESV(MOD-sp2): 24.0 ml ESV(sp4-el): 27.4 ml ESV(sp2-el): 22.6 ml EF(MOD-sp4): 56.3 % EF(MOD-sp2): 59.3 % EF(sp4-el): 58.9 % SV(MOD-sp2): 35.0 ml SV(sp4-el): 39.3 ml LA A4 area: 15.5 cm2 SI(MOD-sp2): 14.5 ml/m2 TAPSE: 1.8 cm RA A4 area: 16.4 cm2 Time Measurements MV dec time: 0.14 sec Doppler Measurements & Calculations MV E max brandon: 37.1 cm/sec Lat Peak E' Brandon: 7.6 cm/sec Med Peak E' Brandon: 8.0 cm/sec MV A max brandon: 61.7 cm/sec E/E' lat: 4.9 E/E' med: 4.7 MV E/A: 0.60 ECHO/Echo Complete Interpretation Summary The LV systolic function is normal. EF is 65 %. Stage 1 diastolic dysfunction. Mildly dilated right ventricle with mild RV systolic dysfunction. Bubble contrast study is negative for PFO/ASD. Ordering Physician: Faviola Hawk Referring Physician: Faviola Hawk Performed By: Blanca Alcantar RDCS, RVT
--- NOTE | 2024-11-28 13:28 | STRESSREP ---
Stress Test Report Date: 11/28/2024 Procedure: Exercise tolerance test Indications: Chest pain Consent: Per the patient Procedure: The patient exercised on a Jose protocol for 9 minutes achieving a peak heart rate of 155 bpm (100% predicted maximal heart rate) with a peak blood pressure 192/90 mmHg and a peak MET capacity of approximately 10.1 MET's. The baseline ECG demonstrated sinus rhythm with rare PVC. The peak exercise ECG showed sinus tachycardia with no ischemic changes. Single PVC noted pretest.. The functional capacity was considered very good for age. The patient had no complaints of chest discomfort during exercise or recovery. The examination was discontinued secondary to target heart rate being achieved. Impression: 1. Technically adequate (percent predicted maximal heart rate greater than 85%) exercise tolerance test 2. Peak exercise ECG with no ischemic changes. No chest pain reported. Hypertensive blood pressure response to exercise. 3. No significant cardiac dysrhythmias noted during exercise or in recovery This note was generated with LocaMapation software. It may contain incorrect words, spelling, and punctuation that were not noted in checking the note before signing.
== END | disposition home or self-care (01) ==
PROVIDERS: PCP Nurse Practitioner Family; Referring Provider Nurse Practitioner Family; Visit Provider Nurse Practitioner Family
DX: R07.9 Chest pain, unspecified (principal); R60.0 Localized edema
CPT/HCPCS: 93017; 93306; A4216

== ENCOUNTER 2025-01-14 15:14 | Outpatient (RCR) | payer MEDICARE, SELFPAY ==
[2025-01-14 16:16] LABS: Absolute Lymphocyte Count 1.18 X10^3/uL (0.83-4.51); Absolute Neutrophil Count 2.5 X10^3/uL (2.0-7.7); Basophil# 0.03 X10^3/uL; Basophil% 0.7 % (0-1); Eosinophil# 0.07 X10^3/uL; Eosinophils% 1.5 % (0-5); Hematocrit 45.4 % (40-54); Hemoglobin 15.3 g/dL (13.0-16.5); Lymphocyte # 1.18 X10^3/ul (0.83-4.51); Mean Corp Hgb Conc 33.7 g/dL (32-36); Mean Corpuscular Hgb 33.6 pg (27.0-32.0); Mean Corpuscular Volume 99.6 fL (80-94); Monocyte# 0.76 X10^3/uL; Monocyte% 16.8 % (0-10); NRBC Flagged by Analyzer 0 % (0-5); Neutrophil # 2.48 X10^3/uL (2.7-7.7); Neutrophil % 54.8 % (47-70); Platelet Count 165 K/mm3 (150-450); RBC Distribution Width CV 12.9 % (11.6-14.6); RBC Distribution Width SD 47.6 fl (35.1-43.9); Red Blood Count 4.56 M/mm3 (4.6-6.2); White Blood Count 4.5 K/mm3 (4.4-11.0)
[2025-01-14 16:30] LABS: Erythrocyte Sedimentation Rate < 1 mm/hr (0-20)
[2025-01-14 16:46] LABS: AST(SGOT) 28 U/L (<=37); Alanine Aminotransfer ALT/SGPT 33 U/L (<=46); BUN 19 mg/dL (4-19); CRP < 3.00 mg/L (0.0-3.0); Creatinine, Serum 1.21 mg/dL (0.70-1.20); EST Glomerular Filtration Rate 66 (>60)
== END 2025-01-14 18:00 | disposition home or self-care (01) ==
LOC: LAB 15:14
PROVIDERS: Family Provider Family Medicine; PCP Nurse Practitioner Family; Referring Provider Internal Medicine Rheumatology; Visit Provider Internal Medicine Rheumatology
DX: M06.079 Rheumatoid arthritis without rheumatoid factor, unspecified ankle and foot (principal); Z79.899 Other long term (current) drug therapy
CPT/HCPCS: 36415; 82565; 84450; 84460; 84520; 85025; 85652; 86140

== ENCOUNTER 2025-04-01 14:38 | Outpatient (RCR) | payer MEDICARE, SELFPAY ==
[2025-04-01 15:18] LABS: Hematocrit 42.5 % (40-54); Hemoglobin 14.7 g/dL (13.0-16.5); Immature Granulocytes Count 0.020 X10^3/uL (0.0-0.0); Mean Corp Hgb Conc 34.6 g/dL (32-36); Mean Corpuscular Volume 98.6 fL (80-94); Mean Platelet Vol. 10.0 fl (6.2-12.0); NRBC Flagged by Analyzer 0 % (0-5); Platelet Count 179 K/mm3 (150-450); RBC Distribution Width CV 12.7 % (11.6-14.6); RBC Distribution Width SD 45.8 fl (35.1-43.9); Red Blood Count 4.31 M/mm3 (4.6-6.2); White Blood Count 4.5 K/mm3 (4.4-11.0)
[2025-04-01 18:03] LABS: AST(SGOT) 29 U/L (<=37); Alanine Aminotransfer ALT/SGPT 27 U/L (<=46); BUN 16 mg/dL (4-19); CRP < 3.00 mg/L (0.0-3.0)
== END 2025-04-22 18:00 | disposition home or self-care (01) ==
LOC: LAB 14:38
PROVIDERS: Family Provider Family Medicine; PCP Nurse Practitioner Family; Referring Provider Internal Medicine Rheumatology; Visit Provider Internal Medicine Rheumatology
DX: M06.079 Rheumatoid arthritis without rheumatoid factor, unspecified ankle and foot (principal)
CPT/HCPCS: 36415; 82565; 84450; 84460; 84520; 85025; 85652; 86140

== ENCOUNTER 2025-06-30 15:20 | Outpatient (RCR) | payer MEDICARE, SELFPAY ==
[2025-06-30 16:22] LABS: Hematocrit 43.4 % (40-54); Hemoglobin 14.9 g/dL (13.0-16.5); Immature Granulocytes Count 0.010 X10^3/uL (0.0-0.0); Mean Corp Hgb Conc 34.3 g/dL (32-36); Mean Corpuscular Volume 99.1 fL (80-94); Mean Platelet Vol. 10.6 fl (6.2-12.0); NRBC Flagged by Analyzer 0 % (0-5); Platelet Count 182 K/mm3 (150-450); RBC Distribution Width CV 12.5 % (11.6-14.6); RBC Distribution Width SD 46.0 fl (35.1-43.9); Red Blood Count 4.38 M/mm3 (4.6-6.2); White Blood Count 5.4 K/mm3 (4.4-11.0)
[2025-06-30 17:28] LABS: AST(SGOT) 27 U/L (<=37); Alanine Aminotransfer ALT/SGPT 32 U/L (<=46); BUN 19 mg/dL (4-19)
[2025-06-30 17:29] LABS: CRP < 3.00 mg/L (0.0-3.0)
== END 2025-06-30 18:00 | disposition home or self-care (01) ==
LOC: LAB 15:20
PROVIDERS: Family Provider Family Medicine; PCP Nurse Practitioner Family; Referring Provider Internal Medicine Rheumatology; Visit Provider Internal Medicine Rheumatology
DX: M06.079 Rheumatoid arthritis without rheumatoid factor, unspecified ankle and foot (principal); Z79.899 Other long term (current) drug therapy
CPT/HCPCS: 36415; 82565; 84450; 84460; 84520; 85025; 85652; 86140

== ENCOUNTER → 2025-07-21 | Outpatient (CLI) | payer MEDICARE, SELFPAY ==
[2025-07-21 10:50] LABS: Mucous, Urine 0 SEEN /hpf (<or=2+); Red Blood Cells-Urine 0 SEEN /hpf (0-5); Squamous Epithelial Cells - UA 0 SEEN /hpf (0-5)
--- NOTE | 2025-07-21 11:10 | RAD_ITS ---
PROCEDURE: HAND MIN 3 VIEWS 07/21/2025 REASON FOR EXAM: RHEUMATOID ARTHRITIS WITH RHEUMATOID FACTOR, UNSPECIFIED TECHNIQUE: Procedure Code: SANAM Modality: DX Procedure: HAND MIN 3 VIEWS FINDINGS: Nearly [id number] narrowing across the radiocarpal and ulnocarpal joints, with periarticular cystic/erosive changes. Diffuse osteopenia. Milder erosive arthropathy involving the 1st through 3rd metacarpophalangeal joints and possibly more mildly the 4th metacarpophalangeal joint. No evidence of fracture. Mild narrowing of the 5th proximal interphalangeal joint, with mild swan-neck deformity of the digit. RAD/Hand Min 3 Views IMPRESSION: Severe erosive radiocarpal and ulnar carpal arthropathy, compatible with rheuma toid arthritis. Milder erosive arthropathy of the 1st through 3rd metacarpophalangeal joints, a nd possibly more mildly the 4th, suggestive of rheumatoid arthritis. Mild swan-neck deformity of the 5th digit with mild narrowing of the 5th proxim al interphalangeal joint. Osteopenia. Reading Location: [facility]
--- NOTE | 2025-07-21 11:10 | RAD_ITS ---
PROCEDURE: LEFT KNEE 4 OR MORE VIEWS 07/21/2025 REASON FOR EXAM: RHEUMATOID ARTHRITIS WITH RHEUMATOID FACTOR, UNSPECIFIED TECHNIQUE: Procedure Code: RADKN Modality: DX Procedure: KNEE 4 OR MORE VIEWS FINDINGS: Hypertrophic spurring about the weight-bearing compartments and the patellofemoral compartment, compatible with tricompartment arthrosis. Lateral joint space narrowing. Well seated patella. No evidence of old Clyde-Schlatter's disease. Suggestion of small joint effusion. RAD/Knee 4 or More Views IMPRESSION: Tricompartment left knee joint arthrosis, more severe than was seen in the rig t, with lateral joint space narrowing. Small effusion Reading Location: [facility]
--- NOTE | 2025-07-21 11:10 | RAD_ITS ---
PROCEDURE: LEFT FOOT MIN 3 VIEWS 07/21/2025 REASON FOR EXAM: RHEUMATOID ARTHRITIS WITH RHEUMATOID FACTOR, UNSPECIFIED TECHNIQUE: Procedure Code: RADFO Modality: DX Procedure: FOOT MIN 3 VIEWS FINDINGS: No plantar or posterior calcaneal spurring. No ankle effusion. Mild talonavicular joint arthrosis. Mild arthrosis and degenerative changes are suspected at the 3rd through 5th tarsometatarsal joints, as well as the medial cuneonavicular joint. Mild arthrosis at the 1st metatarsophalangeal joint. Degenerative and possibly erosive changes of the distal 5th metatarsal head near the metatarsophalangeal joint. No evidence of fracture. No ankle effusion. RAD/Foot min 3 Views IMPRESSION: Arthrosis of the midfoot and 1st metatarsophalangeal joint. Nonspecific changes at the 5th metatarsophalangeal joint. Gouty arthropathy no t excluded. Reading Location: [facility]
--- NOTE | 2025-07-21 11:10 | RAD_ITS ---
PROCEDURE: RIGHT FOOT MIN 3 VIEWS 07/21/2025 REASON FOR EXAM: RHEUMATOID ARTHRITIS WITH RHEUMATOID FACTOR, UNSPECIFIED TECHNIQUE: Procedure Code: RADFO Modality: DX Procedure: FOOT MIN 3 VIEWS FINDINGS: Mild diffuse osteopenia. Mild arthrosis of the 1st metatarsophalangeal joint. No calcaneal spurring. No ankle effusion. Talonavicular joint arthrosis. Arthrosis and degenerative changes at the medial and possibly middle cuneonavicular joints. Focal truncated marginal erosions of the distal 5th metatarsal head near the 5th metatarsophalangeal joint, more severe than is seen on the left. RAD/Foot min 3 Views IMPRESSION: Marginal erosions in the distal 5th metatarsal head near the metatarsophalangea l joint, more severe than seen on the left, suggesting possible gouty or similar arthropathy. Midfoot and 1st metatarsophalangeal joint arthrosis. Mild diffuse osteopenia. Reading Location: [facility]
--- NOTE | 2025-07-21 11:10 | RAD_ITS ---
PROCEDURE: CERV SPINE OBL/FLEX/EXT COMP 07/21/2025 REASON FOR EXAM: RHEUMATOID ARTHRITIS WITH RHEUMATOID FACTOR, UNSPECIFIED TECHNIQUE: Procedure Code: RADSPCFE Modality: DX Procedure: CERV SPINE OBL/FLEX/EXT COMP FINDINGS: No prevertebral soft tissue swelling. No definite spondylolisthesis. Lower cervical spondylosis. No evidence of fracture. Slight midcervical kyphosis. No scoliosis. Clear lung apices. No odontoid abnormality. No instability on flexion/extension. No other abnormality. Degenerative changes and spondylosis at the C1-2 articulation. RAD/Cerv Spine Obl/Flex/Ext Comp IMPRESSION: Spondylosis. Mild midcervical kyphosis. No instability on flexion/extension. Reading Location: [facility]
--- NOTE | 2025-07-21 11:10 | RAD_ITS ---
PROCEDURE: RIGHT KNEE 4 OR MORE VIEWS 07/21/2025 REASON FOR EXAM: RHEUMATOID ARTHRITIS WITH RHEUMATOID FACTOR, UNSPECIFIED TECHNIQUE: Procedure Code: RADKN Modality: DX Procedure: KNEE 4 OR MORE VIEWS FINDINGS: Well-positioned patella. No joint space narrowing. Chronic bony fragmentation of the tibial tuberosity, compatible with old García-Schlatter's disease. Slight hypertrophic spurring off the patella. No definite effusion. No fracture. RAD/Knee 4 or More Views IMPRESSION: Slight hypertrophic spurring off the patella, compatible with mild arthrosis. No definite joint space narrowing. Old García-Schlatter's disease. Reading Location: [facility]
--- NOTE | 2025-07-21 11:10 | RAD_ITS ---
PROCEDURE: HAND MIN 3 VIEWS 07/21/2025 REASON FOR EXAM: RHEUMATOID ARTHRITIS WITH RHEUMATOID FACTOR, UNSPECIFIED TECHNIQUE: Procedure Code: [facility] Modality: DX Procedure: HAND MIN 3 VIEWS FINDINGS: Diffuse osteopenia. Mild degenerative changes about the radiocarpal joint. No significant ulnar variance. Normal scapholunate interval. Ulnar deviation of the digits. Severe joint space narrowing of the 1st through 3rd metacarpophalangeal joints, with likely [id number] contact and periarticular erosive changes. Milder degenerative changes at the 1st carpometacarpal joint. 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 Milder degenerative changes in the 2nd proximal interphalangeal joint. RAD/Hand Min 3 Views IMPRESSION: Ulnar deviation of the digits, with erosive arthropathy causing severe narrowin g at the 1st through 3rd metacarpophalangeal joints, compatible with stated history of rheumatoid arthritis. 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 Milder degenerative changes in the 2nd proximal interphalangeal joint, the 1st carpometacarpal joint, and the radiocarpal joint. Reading Location: [facility]
[2025-07-21 12:12] LABS: AST(SGOT) 33 U/L (<=37); Alanine Aminotransfer ALT/SGPT 46 U/L (<=46); Albumin, Serum 4.6 g/dL (3.4-4.8); Alkaline Phosphatase 59 U/L (40-129); Anion Gap 8 (7-18); BUN 13 mg/dL (4-19); BUN/Creat Ratio 12.4 RATIO (10-20); Calcium,Total 9.6 mg/dL (7.6-11.0); Carbon Dioxide 30.4 mmol/L (20.0-29.0); Chloride 103 mmol/L (96-106); Globulin 2.2 g/dL (2.2-4.2); Glucose 109 mg/dL (70-99); Potassium 4.4 mmol/L (3.5-5.1); Vitamin D,25 Hydroxy 46.8 ng/mL (30-100)
[2025-07-21 12:17] LABS: CRP < 3.00 mg/L (0.0-3.0)
== END | disposition home or self-care (01) ==
PROVIDERS: PCP Nurse Practitioner Family; Referring Provider Internal Medicine Rheumatology; Visit Provider Internal Medicine Rheumatology
DX: M05.761 Rheumatoid arthritis with rheumatoid factor of right knee without organ or systems involvement (principal); M05.762 Rheumatoid arthritis with rheumatoid factor of left knee without organ or systems involvement; M05.771 Rheumatoid arthritis with rheumatoid factor of right ankle and foot without organ or systems involvement; M05.772 Rheumatoid arthritis with rheumatoid factor of left ankle and foot without organ or systems involvement; M05.741 Rheumatoid arthritis with rheumatoid factor of right hand without organ or systems involvement; M05.742 Rheumatoid arthritis with rheumatoid factor of left hand without organ or systems involvement; M45.2 Ankylosing spondylitis of cervical region
CPT/HCPCS: 36415; 72052; 73130; 73564; 73630; 80053; 82306; 86140